=== PATIENT | female | born 1980 | race Native Hawaiian/Other Pacific Islander ===

== ENCOUNTER 2020-01-19 11:43 | Outpatient (REF) | payer MEDICAID, SELFPAY ==
--- NOTE | 2020-01-19 12:03 | XR_ITS ---
EXAMINATION: XR CHEST 2 VIEWS CLINICAL INFORMATION: Acute asthma exacerbation. COMPARISON: Prior chest radiographs, most recently 11/14/2016. TECHNIQUE: Frontal and lateral views of the chest were obtained. FINDINGS: The heart, great vessels, pulmonary vasculature and mediastinum are normal. The lungs show no focal infiltrate, effusion or pneumothorax. There is no acute osseous abnormality. XR/XR chest 2V IMPRESSION: No active cardiopulmonary disease.
[2020-01-19 13:12] LABS: D Dimer < 200 NG/ML
== END 2020-01-19 11:44 | disposition home or self-care (01) ==
LOC: HO.LAB 11:43
PROVIDERS: PCP Family Medicine; Visit Provider Emergency Medicine
DX: J45.41 Moderate persistent asthma with (acute) exacerbation (principal); R06.02 Shortness of breath
CPT/HCPCS: 36415; 71046; 85379

== ENCOUNTER 2020-09-15 13:41 | Outpatient (REF) | payer MEDICAID, SELFPAY ==
--- NOTE | ~2020-09-15 | XR_ITS ---
EXAMINATION: XR KNEE, RIGHT CLINICAL INFORMATION: Pain right knee. COMPARISON: None TECHNIQUE: Three views of the right knee. FINDINGS: The tricompartment joint space is maintained normal. No visible acute fracture, dislocation or subluxation seen. There are no loose bodies. XR/XR knee RT 4V IMPRESSION: Unremarkable right knee exam.
== END 2020-09-15 13:42 | disposition home or self-care (01) ==
LOC: HO.XRAY 13:41
PROVIDERS: Absent Provider Family Medicine; PCP Family Medicine; Visit Provider Internal Medicine
DX: M25.561 Pain in right knee (principal)
CPT/HCPCS: 73564

== ENCOUNTER 2021-04-24 12:03 | Outpatient (REF) | payer MEDICAID, SELFPAY ==
--- NOTE | ~2021-04-24 | MM_ITS ---
EXAMINATION: MM SCREENING DIGITAL BREAST TOMOSYNTHESIS, BILATERAL CLINICAL INFORMATION: Screening. Asymptomatic. Age 41. No prior breast imaging. No known family history breast cancer. The lifetime risk of breast cancer based on the Tyrer-Cuzick Model is 8%. COMPARISON: None (current study represents initial baseline exam). TECHNIQUE: Digital breast tomosynthesis is performed in both the craniocaudal and mediolateral oblique views along with computer-aided detection (CAD). Synthesized 2D images are generated from the tomosynthesis. FINDINGS: The breasts are almost entirely fatty (ACR BI-RADS breast composition Category a). There are no significant masses, abnormal calcifications, or other abnormalities. Background stromal markings are normal. The skin contours are smooth. MM/MM tomosynthesis screening BI IMPRESSION: No mammographic evidence of malignancy. ASSESSMENT: BI-RADS 1: Negative RECOMMENDATION: Routine annual mammography screening. This patient's information was entered into a reminder system with a target due date for their next mammogram.
== END 2021-04-24 12:04 | disposition home or self-care (01) ==
LOC: HO.MAMMO 12:03
PROVIDERS: PCP Family Medicine; Visit Provider Family Medicine
DX: Z12.31 Encounter for screening mammogram for malignant neoplasm of breast (principal)
CPT/HCPCS: 77063; 77067

== ENCOUNTER 2021-06-22 17:12 | Emergency (ER) | payer MEDICAID, SELFPAY ==
--- NOTE | ~2021-06-22 | CT_ITS ---
EXAMINATION: CT ABDOMEN AND PELVIS WITHOUT CONTRAST CLINICAL INFORMATION: Left lower quadrant pain COMPARISON: 02/07/2014 TECHNIQUE: Multidetector volumetric imaging was performed from the superior aspect of the liver through the pubic symphysis. Sagittal and coronal reformatted images were obtained on the technologist's workstation. This CT examination was performed using dose optimization techniques as appropriate, variously including the following: *Automated exposure control *Adjustment of mA and/or kV according to patient size (this includes techniques or standardized protocols for targeted exams where dose is matched to indication/reason for exam; i.e. extremities or head) *Use of iterative reconstruction technique DLP: 914 mGy-cm FINDINGS: LUNG BASES: Minimal bibasilar atelectasis. The visualized cardiac structures are unremarkable. LIVER, GALLBLADDER, AND BILIARY TREE: The liver is normal in size, shape, and attenuation. No focal hepatic lesion or biliary ductal dilatation is present. Numerous stones are seen layering in the gallbladder lumen. No inflammation of the gallbladder. PANCREAS: Unremarkable. SPLEEN: Unremarkable. ADRENAL GLANDS: Unremarkable. KIDNEYS AND URETERS: The kidneys are normal in size, shape, and attenuation. No hydronephrosis, hydroureter, or calculi seen. No perinephric stranding. BLADDER: Decompressed with no gross abnormality. GASTROINTESTINAL TRACT: The stomach is unremarkable. Normal caliber small bowel. No obstruction. Normal appendix. No colonic wall thickening or inflammatory change. No significant diverticulosis. No free air or free fluid. ABDOMINAL WALL: No significant hernia is appreciated. LYMPH NODES: Normal. VASCULAR: Unremarkable. PELVIC VISCERA: The uterus and adnexa are unremarkable. OSSEOUS STRUCTURES: No acute or suspicious osseous abnormality. CT/CT abdomen pelvis wo con IMPRESSION: No acute findings in the abdomen or pelvis. No inflammatory changes. Numerous stones are seen in the gallbladder lumen with no inflammation of the gallbladder. Fleischner guidelines were followed.
[2021-06-22 17:28] VITALS: BP 148/86; PULSE 90; RESP 18; TEMP 36.6; O2SAT 98; BMI 42.4
[2021-06-22 19:31] LABS: Appearance Urine CLEAR; Color Urine YELLOW; Glucose Urine UA NEG (NEG); Leukocyte Esterase Urine NEG (NEG); Nitrite Urine NEG (NEG); PH 5.5 (5.0-8.0); Specific Gravity - Urine >= 1.030 (1.005-1.025); Urine Blood NEG (NEG); Urine Ketones 5 MG/DL (NEG); Urine Protein TRACE MG/DL (NEG-TRACE)
[2021-06-22 19:32] LABS: UPreg QC Valid YES; Urine Pregnancy NEGATIVE (NEGATIVE)
[2021-06-22 19:35] LABS: Alanine Aminotransferase 23 U/L (0-31); Albumin Level 3.6 g/dL (3.5-5.0); Alkaline Phosphatase 45 U/L (39-117); Anion Gap 10 (12-20); Aspartate Amino Transferase 17 U/L (5-31); Bilirubin Direct 0.2 mg/dL (0.0-0.5); Bilirubin Total 0.4 mg/dL (0.0-1.0); Blood Urea Nitrogen 12 mg/dL (9-16); Calcium 9.2 mg/dL (8.4-10.2); Carbon Dioxide 26 mmol/L (22-29); Chloride 106 mmol/L (96-108); Creatinine Clr Calc Pharmacy 143.1; Estimated Glomerular Filt Rate > 60; Glucose Random 153 mg/dL (60-115); Lipase 33 U/L (8-78); Potassium 3.8 mmol/L (3.3-5.1); Sodium 138 mmol/L (135-145); Total Protein 6.8 g/dL (6.5-8.0)
--- NOTE | 2021-06-22 22:25 | PC.NURSE ---
Pt was requesting more pain medications from Tomy MARTINEZ, but pt was given tramadol and toradol at a clinic, Tomy MARTINEZ told her he could not give her more pain medications until a doctor examines her.
[2021-06-23 00:33] VITALS: BP 125/73; PULSE 81; RESP 20; O2SAT 100
--- NOTE | 2021-06-23 01:44 | ED.ABDPAIN ---
HPI - Abdominal Pain General Chief Complaint: Abdominal Pain Stated Complaint: abd pain/back pain/nausea Time Seen by Provider: 06/23/21 00:02 Source: patient Mode of arrival: ambulatory History of Present Illness HPI narrative: 41-year-old female with history of diabetes and asthma presents with abdominal pain for 2 days with associated nausea and chills but denies any urinary symptoms and states she has had a few episodes of diarrhea. Otherwise patient states that she still passes flatus and denies any new cough. Patient has no previous history of renal colic and describes the pain as sharp in the left lower quadrant. Related Data Previous Rx's Medication Instructions Recorded ondansetron 4 mg disintegrating 4 mg PO Q6H PRN #10 tab 06/23/21 tablet Allergies Allergy/AdvReac Type Severity Reaction Status Date / Time acetaminophen [From PERCOCET] Allergy Unknown ITCHY Unverified 10/28/19 17:31 oxycodone [From PERCOCET] Allergy Unknown ITCHY Unverified 10/28/19 17:31 Review of Systems Review of Systems Pertinent positives and negatives as stated in HPI 10 point review of systems is otherwise negative. PMFSH Past Medical History Source: nursing notes reviewed Social History Social History Advance Directives: No Advance Directives Information Provided: No Physical Exam ED Vital Signs: Vital Signs - 24 hr 06/22/21 17:28 06/23/21 00:33 06/23/21 02:40 Temperature 98 F Pulse Rate 90 81 83 Respiratory Rate 18 20 16 Blood Pressure 148/86 H 125/73 127/78 Pulse Oximetry 98 100 98 06/23/21 04:07 Temperature Pulse Rate 84 Respiratory Rate 18 Blood Pressure 127/83 Pulse Oximetry 96 BMI result Body Mass Index 42.4 VITAL SIGNS: Reviewed. GENERAL: Elevated BMI, well nourished, in mild distress. HEAD: Normocephalic/atraumatic EYES: PERRLA, EOMI EARS: Ext canals without abnormality OROPHARYNX: no oral lesions noted, posterior pharynx clear LUNGS: Normal breath sounds. No adventitious sounds or accessory muscle use. SpO2<98> CARDIOVASCULAR: Regular rate and rhythm without noted murmurs ABDOMEN: Soft, tenderness noted an left lower quadrant/left side of the abdomen, non-distended with bowel sounds. NEUROLOGIC: Alert and oriented x 4. Strength and sensation to light touch were grossly intact x 4. Course Course Course Narrative: 41-year-old female with history and clinical presentation suggestive of possible renal colic, diverticulitis lower clinical suspicion for pancreatitis or cholecystitis. Review of all investigations without acute findings to better explain patient's symptoms other than the possibility of intermittent biliary colic. No evidence to suggest pancreatitis or colitis. Patient responded well to pain medication was noted to be resting comfortably prior to discussion of all results. She is discharged home in stable condition with a referral to follow-up with surgery should she decide to have her gallbladder removed which it was noted that she had cholelithiasis. MDM - Abdominal Pain Lab Data Result diagrams: 06/23/21 02:40 06/22/21 19:06 Labs: Lab Results 06/22/21 06/22/21 06/22/21 Range/Units 19:06 19:06 19:06 WBC (4.8-10.8) X10*3/uL RBC (4.20-5.50) X10*6/uL Hgb (12.0-16.0) g/dl Hct (37.0-47.0) % MCV (80.0-98.0) fL MCH (27.0-33.0) pg MCHC (31.0-35.0) g/dl RDW (11.0-16.0) % Plt Count (160-400) X10*3/uL MPV (9.4-12.3) fL Immature Gran % (Auto) (0.0-0.4) % Neut % (Auto) (45-73) % Lymph % (Auto) (20-40) % [place] % (Auto) (2-11) % Eos % (Auto) (0-4) % Baso % (Auto) (0-2) % Lymph # (Auto) (1.2-4.9) X10*3/uL [place] # (Auto) (0.1-1.2) X10*3/uL Eos # (Auto) (0.0-0.4) X10*3/uL Baso # (Auto) (0.0-0.2) X10*3/uL Abs Immat Gran (auto) (0.00-0.03) X10*3/uL Absolute Neuts (auto) (2.0-8.3) x10*3/uL Absolute Nucleated RBC (0.0-0.012) X10*3/uL Nucleated RBC % (auto) (0.0-0.2) /100WBC Sodium 138 (135-145) mmol/L Potassium 3.8 (3.3-5.1) mmol/L Chloride 106 (96-108) mmol/L Carbon Dioxide 26 (22-29) mmol/L Anion Gap 10 L (12-20) BUN 12 (9-16) mg/dL Creatinine 0.64 (0.5-1.4) mg/dL Estim Creat Clear Calc 143.1 Estimated GFR > 60 Random Glucose 153 H (60-115) mg/dL Calcium 9.2 (8.4-10.2) mg/dL Total Bilirubin 0.4 (0.0-1.0) mg/dL Direct Bilirubin 0.2 (0.0-0.5) mg/dL AST 17 (5-31) U/L ALT 23 (0-31) U/L Alkaline Phosphatase 45 (39-117) U/L Total Protein 6.8 (6.5-8.0) g/dL Albumin 3.6 (3.5-5.0) g/dL Lipase 33 (8-78) U/L Urine Color YELLOW Urine Appearance CLEAR Urine pH 5.5 (5.0-8.0) Ur Specific [place] >= 1.030 H (1.005-1.025) Urine Protein TRACE (NEG-TRACE) MG/DL Urine Glucose (UA) NEG (NEG) MG/DL Urine Ketones 5 (NEG) MG/DL Urine Blood NEG (NEG) Urine Nitrite NEG (NEG) Ur Leukocyte Esterase NEG (NEG) Urine Test NEGATIVE (NEGATIVE) 06/23/21 Range/Units 02:40 WBC 7.5 (4.8-10.8) X10*3/uL RBC 4.56 (4.20-5.50) X10*6/uL Hgb 12.4 (12.0-16.0) g/dl Hct 37.8 (37.0-47.0) % MCV 82.9 (80.0-98.0) fL MCH 27.2 (27.0-33.0) pg MCHC 32.8 (31.0-35.0) g/dl RDW 12.7 (11.0-16.0) % Plt Count 224 (160-400) X10*3/uL MPV 10.4 (9.4-12.3) fL Immature Gran % (Auto) 0.1 (0.0-0.4) % Neut % (Auto) 71.2 (45-73) % Lymph % (Auto) 20.6 (20-40) % [place] % (Auto) 6.0 (2-11) % Eos % (Auto) 1.7 (0-4) % Baso % (Auto) 0.4 (0-2) % Lymph # (Auto) 1.6 (1.2-4.9) X10*3/uL [place] # (Auto) 0.5 (0.1-1.2) X10*3/uL Eos # (Auto) 0.1 (0.0-0.4) X10*3/uL Baso # (Auto) 0.0 (0.0-0.2) X10*3/uL Abs Immat Gran (auto) 0.01 (0.00-0.03) X10*3/uL Absolute Neuts (auto) 5.4 (2.0-8.3) x10*3/uL Absolute Nucleated RBC 0.000 (0.0-0.012) X10*3/uL Nucleated RBC % (auto) 0.0 (0.0-0.2) /100WBC Sodium (135-145) mmol/L Potassium (3.3-5.1) mmol/L Chloride (96-108) mmol/L Carbon Dioxide (22-29) mmol/L Anion Gap (12-20) BUN (9-16) mg/dL Creatinine (0.5-1.4) mg/dL Estim Creat Clear Calc Estimated GFR Random Glucose (60-115) mg/dL Calcium (8.4-10.2) mg/dL Total Bilirubin (0.0-1.0) mg/dL Direct Bilirubin (0.0-0.5) mg/dL AST (5-31) U/L ALT (0-31) U/L Alkaline Phosphatase (39-117) U/L Total Protein (6.5-8.0) g/dL Albumin (3.5-5.0) g/dL Lipase (8-78) U/L Urine Color Urine Appearance Urine pH (5.0-8.0) Ur Specific [place] (1.005-1.025) Urine Protein (NEG-TRACE) MG/DL Urine Glucose (UA) (NEG) MG/DL Urine Ketones (NEG) MG/DL Urine Blood (NEG) Urine Nitrite (NEG) Ur Leukocyte Esterase (NEG) Urine Test (NEGATIVE) Discharge Plan Discharge Clinical Impression: Abdominal pain, Cholelithiasis Patient Disposition: Home, Self-Care Instructions: Gallstones (ED), Abdominal Pain (ED) Additional Instructions: 1. Tylenol 1000 mg, por v?a oral, cada 6 horas seg?n sea necesario para controlar el dolor. No exceda los 4000 mg dentro de las 24 horas. 2. Ibuprofeno 400 mg, por v?a oral con leche o alimentos, cada 6 horas seg?n sea necesario para controlar el dolor. 3. Se le mai proporcionado kari remisi?n para haider kari cirug?a para discutir el tratamiento definitivo para ney c?lculos en la ves?cula biliar. 4. Sudha un seguimiento con encarnacion proveedor de atenci?n primaria el lunes por la ma?keren para kari reevaluaci?n. Regrese a la adolph de emergencias si los s?ntomas empeoran. Prescriptions: New ondansetron 4 mg tablet,disintegrating 4 mg PO Q6H PRN (Reason: nausea and vomiting) Qty: 10 0RF Referrals: Tamica Duran MD [Primary Care Provider] - Jaydon Mohan MD [Physician] - (Cholelithiasis and intermittent abdominal discomfort.) Print Language: Bangladeshi
[2021-06-23] MEDS: Ketorolac Tromethamine 15 MG/ML VIAL IM (01:54)
[2021-06-23 02:40] VITALS: BP 127/78; PULSE 83; RESP 16; O2SAT 98
[2021-06-23 02:44] LABS: Basophils Percent Auto 0.4 % (0-2); Eosinophils Absolute Auto 0.1 X10*3/uL (0.0-0.4); Eosinophils Percent Auto 1.7 % (0-4); Hematocrit 37.8 % (37.0-47.0); Hemoglobin 12.4 g/dl (12.0-16.0); Imm Gran Abs Auto 0.01 X10*3/uL (0.00-0.03); Imm Gran Pct Auto 0.1 % (0.0-0.4); Lymphocytes Absolute Auto 1.6 X10*3/uL (1.2-4.9); Lymphocytes Percent Auto 20.6 % (20-40); Mean Corpuscular HGB Conc 32.8 g/dl (31.0-35.0); Mean Corpuscular Hemoglobin 27.2 pg (27.0-33.0); Mean Corpuscular Volume 82.9 fL (80.0-98.0); Mean Platelet Volume 10.4 fL (9.4-12.3); Monocytes Absolute Auto 0.5 X10*3/uL (0.1-1.2); Neutrophils Absolute Auto 5.4 x10*3/uL (2.0-8.3); Neutrophils Percent Auto 71.2 % (45-73); Platelet Count 224 X10*3/uL (160-400); Red Blood Count 4.56 X10*6/uL (4.20-5.50); Red Cell Distribution Width 12.7 % (11.0-16.0); White Blood Count 7.5 X10*3/uL (4.8-10.8)
[2021-06-23 02:45] LABS: MANUAL DIFF FLAG NO
[2021-06-23] MEDS: 0.9 % Sodium Chloride 1,000 ML 999 ML IV (02:50)
[2021-06-23] MEDS: ondansetron HCL 4 MG/2 ML VIAL IVPUSH (03:03)
[2021-06-23 04:07] VITALS: BP 127/83; PULSE 84; RESP 18; O2SAT 96
== END 2021-06-23 04:32 | disposition home or self-care (01) ==
PROVIDERS: Emergency Provider Student in an Organized Health Care Education/Training Program; PCP Family Medicine
DX: K80.20 Calculus of gallbladder without cholecystitis without obstruction (principal); E11.9 Type 2 diabetes mellitus without complications
CPT/HCPCS: 36415; 74176; 80048; 80076; 81003; 81025; 83690; 85025; 96361; 96372; 96374; 99283; 99284; J1885; J2405

== ENCOUNTER 2022-09-12 08:42 | Outpatient (REF) | payer MEDICAID, SELFPAY ==
[2022-09-12 10:10] LABS: Blood Urea Nitrogen 11 mg/dL (9-16); Estimated Glomerular Filt Rate > 60
== END 2022-09-12 08:43 | disposition home or self-care (01) ==
LOC: HO.LAB 08:42
PROVIDERS: PCP Family Medicine; Visit Provider Registered Nurse
DX: Z00.00 Encounter for general adult medical examination without abnormal findings (principal)
CPT/HCPCS: 36415; 82565; 84520

== ENCOUNTER 2022-09-30 14:56 | Outpatient (REF) | payer MEDICAID, SELFPAY ==
--- NOTE | ~2022-09-30 | MM_ITS ---
EXAMINATION: MM SCREENING DIGITAL BREAST TOMOSYNTHESIS, BILATERAL CLINICAL INFORMATION: Screening. Asymptomatic. COMPARISON: Mammography: This study is compared with prior exams dating back to 2021. TECHNIQUE: Digital breast tomosynthesis is performed in both the craniocaudal and mediolateral oblique views along with computer-aided detection (CAD). Synthesized 2D images are generated from the tomosynthesis. FINDINGS: The breasts are almost entirely fatty (ACR BI-RADS breast composition Category a). There are no significant masses, abnormal calcifications, or other abnormalities. MM/MM tomosynthesis screening BI IMPRESSION: No mammographic evidence of malignancy. ASSESSMENT: BI-RADS BI-RADS 1 - Negative RECOMMENDATION: Routine annual mammography screening. 1 year F/U This examination should not preclude the clinical evaluation of a suspicious palpable abnormality. This patient's information was entered into a reminder system with a target due date for their next mammogram.
== END 2022-09-30 14:57 | disposition home or self-care (01) ==
LOC: HO.MAMMO 14:56
PROVIDERS: PCP Family Medicine; Visit Provider Family Medicine
DX: Z12.31 Encounter for screening mammogram for malignant neoplasm of breast (principal)
CPT/HCPCS: 77063; 77067

== ENCOUNTER → 2022-09-30 15:15 | Outpatient (BNV) | payer MEDICAID, SELFPAY | PROVIDERS: PCP Family Medicine; Visit Provider Radiology Diagnostic Radiology | DX: Z12.31 Encounter for screening mammogram for malignant neoplasm of breast (principal) | CPT/HCPCS: 77063; 77067 ==

== ENCOUNTER 2022-12-05 22:03 | Emergency (ER) | payer MEDICAID, SELFPAY ==
[2022-12-05 22:06] VITALS: BP 145/76; PULSE 98; RESP 24; TEMP 36.5; O2SAT 99; BMI 42.2
--- NOTE | 2022-12-05 22:27 | ED_ITS ---
HPI - Anxiety General Chief Complaint: Anxiety Stated Complaint: panic attacks Time Seen by Provider: 12/05/22 22:21 Source: patient and family Mode of arrival: ambulatory Limitations: no limitations History of Present Illness HPI narrative: Patient is a 42-year-old female with history of paraganglioma, asthma, anxiety, T2DM presenting to the emergency department with complaint of anxiety and frequent panic attacks for the past 1-2 weeks. She reports history of the same in the past, approximately 5 years ago but states that her anxiety at that time was related to a specific situation. She denies any current stressors or other situations causing her anxiety at this time. Reports only recent medication change was switching to Januvia from metformin. States she has been on Ativan and Klonopin in the past but states she does not wish to use any benzodiazepines at this time due to concern for addiction. She is not currently prescribed any medications for anxiety or depression, does not have a therapist or psychiatrist at this time. Saw her PCP yesterday, had labs drawn, but states PCP did not prescribe anything for anxiety. She denies any suicidal or homicidal ideations, auditory or visual hallucinations. Significant other reports that he has had to funeral car driver her around in the car in order for her to be able to get any sleep. She denies any chest pain, shortness of breath, palpitations. complaint: anxiety Onset (ago): week(s) Severity: severe Quality: worsening Place: home History of similar episodes: Yes Provoking factors: none known Relieving factors: nothing Exacerbating factors: nothing Associated symptoms: denies other symptoms Related Data Previous Rx's Medication Instructions Recorded ondansetron 4 mg disintegrating 4 mg PO Q6H PRN nausea and 06/23/21 tablet vomiting #10 tabs hydroxyzine HCl 25 mg tablet 25 mg PO TID PRN anxiety #14 tabs 12/05/22 Allergies Allergy/AdvReac Type Severity Reaction Status Date / Time oxycodone [From PERCOCET] Allergy Unknown ITCHY Verified 12/05/22 22:06 Review of Systems Review of Systems: As per HPI. Yes all other systems are reviewed and are negative Constitutional: Constitutional: Reports as per HPI [facility] Social History Social History Smoked in Last 30 Days: No Use of substances other than those prescribed or required for medical reasons: No Advance Directives: No Advance Directives Information Provided: No Patient : No Physical Exam Vital Signs: Vital Signs: Last Vital Signs Temp 97.8 F 12/05/22 23:15 Pulse 96 12/05/22 23:15 Resp 16 12/05/22 23:15 BP 107/61 12/05/22 23:15 Pulse Ox 98 12/05/22 23:15 O2 Del Method Room Air 12/05/22 23:15 BMI result Body Mass Index 42.2 Vital signs have been reviewed and appear to be correct. Blood pressure mildly elevated. Heart rate normal. Respiratory rate slightly elevated. Temperature normal. Oxygen saturation normal. Const: General: cooperative, healthy appearing and no acute distress Orientation/consciousness: oriented to person, oriented to place, oriented to time and patient oriented x3 Limitations: no limitations HEENT: Head: Yes normocephalic and Yes atraumatic Ears: external ears normal General nose exam: Normal external nose present Face and sinus: Yes face symmetric Mouth: oropharynx normal and moist mucous membranes Throat: Yes uvula midline Eyes: Pupils: Equal, round and reactive pupils present Neck: Neck: Yes normal visual inspection and Yes supple Resp: Effort & Inspection: normal respiratory effort and able to speak in complete sentences Auscultation: clear to auscultation bilaterally Cardio: Rate: regular rate Rhythm: regular rhythm Heart sounds: S1 normal heart sound present and S2 normal heart sound present GI: Palpation (GI): Soft to palpation and nontender Auscultation: normoactive bowel sounds : General: Yes no CVA tenderness Back/Spine/Pelvis: Back: no CVA tenderness Skin: General skin exam: elasticity normal and turgor normal Neuro: General: oriented to person, oriented to place, oriented to time, patient oriented x3, moves all extremities, no focal motor deficits and CN's II- XI intact bilaterally Cranial nerves: Yes Equal, round and reactive pupils present Cognition (Neuro): normal cognition Extrem: General: Yes full ROM, Yes no pedal edema and Yes no calf tenderness Psych: Appearance: grossly normal Mental Status: mental status grossly normal Speech and movement: Pressured speech present Affect: Anxious affect present Attitude: cooperative Thought process: Normal thought process present Thought content: suicidality, no homicidality and no hallucinations Insight: Good insight present (Psych) 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 On exam patient is awake, A+Ox3, VS WNL, afebrile, normal neurological exam without focal deficits, physical exam findings as above. Given reported symptoms and physical exam findings, initial differential includes anxiety, panic disorder, depression. Will medicate patient with hydroxyzine as she is specifically requesting not to be medicated with benzodiazepines. Discussed with patient that it may be helpful to establish care with a therapist, patient states she is willing to do this, will provide resources. Given that patient was evaluated by PCP yesterday for same symptoms, do not feel additional labs are necessary at this time. Patient reports improved symptoms after receiving hydroxyzine and states was even able to fall sleep well in the ED. Will prescribe a short course for patient to use at home but advised patient she should attempt to establish care with a therapist. Instructed patient to follow-up with primary care provider and notify PCP that she was prescribed this medication. Return precautions discussed at bedside. Patient and significant other verbalized understanding of and agreement with plan. Differential Diagnosis Differential Diagnoses: The differential diagnosis associated with the presentation includes As per MDM. External Record Review External record reviewed: Inpatient record, Office record and Outpatient record Prescription Management I considered prescription management with: Other Chronic Conditions Patient?s care impacted by: Diabetes Discharge Plan Discharge Clinical Impression: Acute anxiety, Panic disorder Patient Disposition: Home, Self-Care Instructions: Panic Disorder (ED), Anxiety (ED) Additional Instructions: You were evaluated in the emergency department today for anxiety. Your symptoms improved with hydroxyzine. A prescription for this has been sent to your pharmacy. Please follow up with your primary care provider to notify them that this medication was prescribed to you. You were provided with resources to find a therapist in this area. Return to the emergency department if you have thoughts of hurting yourself, anyone else, chest pain, shortness of breath, or any other concerning symptoms. Prescriptions: New hydroxyzine HCl 25 mg tablet 25 mg PO TID PRN (Reason: anxiety) Qty: 14 0RF No Action ondansetron 4 mg tablet,disintegrating 4 mg PO Q6H PRN (Reason: nausea and vomiting) Qty: 10 0RF
--- OUTSIDE RECORDS SUMMARY | 2022-12-05 22:29 | XMS_ITS | Continuity of Care Document ---
Author Name Unknown Organization [facility] Address [address] [place] [address]- Care Team Providers Care On Air Director Name Role Phone Tamica Duran MD Primary Care Physician [place] [facility] [place] 07/17[place]21 - 08/16/21 [facility] [address] [place] [id number] Attending Physician: Admtr, Ar8 Admitting Physician: Admtr, Ar8 Referring Physician: Admtr, Ar8 Allergies, Adverse Reactions, Alerts No Known Allergies Medications Freestyle Lite Lancets See Instructions, # 100 each, Refills 11, Tot. Refills 11, Maintenance, Use to check blood sugar once daily in the morning. 01/03/20 13:08:00 EST, Supply Start Date: 01/03/20 Stop Date: 12/28/20 Status: Ordered Freestyle Lite Monitor See Instructions, # 1 each, Refills 5, Tot. Refills 5, Maintenance, Use to check blood sugar once daily in the morning. 01/03/20 13:08:00 EST, Supply Start Date: 01/03/20 Stop Date: 07/01/20 Status: Ordered Freestyle Lite Test Strips See Instructions, # 50 each, Refills 11, Tot. Refills 11, Maintenance, Use to check blood sugar once daily in the morning. 01/03/20 13:08:00 EST, Supply Start Date: 01/03/20 Stop Date: 12/28/20 Status: Ordered gabapentin 100 mg oral capsule 100 mg, 1, capsule, By Mouth, Daily at bedtime, Take 1 capsule daily at bedtime for neuropathic pain., # 30 capsule, Refills 5, Tot. Refills 5, Maintenance, 07/17/21 9:39:00 EDT, Route to Pharmacy Electronically, [facility]/pharmacy #[id number], Partial fill upon... Start Date: 07/17/21 Status: Ordered metFORMIN 750 mg oral tablet, extended release 1 tablet = 750 mg, By Mouth, Daily, Take 1 tablet daily in the morning with food. E11.65., # 30 tablet, 11 Refills, Maintenance, 07/17/21 9:29:00 EDT, ER Tablet, [facility]/pharmacy #[id number], Partial fill uponpatient request if the prescription is for a schedu... Start Date: 07/17/21 Status: Ordered Trulicity Pen 4.5 mg/0.5 mL subcutaneous solution = 0.5 mL, Subcutaneous Injection, Every week, Take 4.5mg once weekly. E11.65., # 2 mL, 5 Refills, Maintenance, 07/17/21 9:29:00 EDT, Solution, [facility]/pharmacy #[id number], Partial fill upon patient request ifthe prescription is for a schedule II opioid drug.,... Start Date: 07/17/21 Status: Ordered Problem List Condition Effective Dates Status Health Status Inform ant Severe obesity(Confirmed) Active Social History Social History Type Response Smoking Status Former smoker entered on: 04/07/14 Sex
--- OUTSIDE RECORDS SUMMARY | 2022-12-05 22:30 | XMS_ITS | Continuity of Care Document ---
Author Name Unknown Organization [facility] Address [address] [place] [address]- Care Team Providers Care Bag Shaker Name Role Phone Tamica Duran MD Primary Care Physician [place] [facility] [place] 04/[place]/20 [facility] [address] [place] [id number] Attending Physician: Admtr, Ar8 Admitting Physician: Admtr, Ar8 Referring Physician: Admtr, Ar8 Allergies, Adverse Reactions, Alerts Substance Reaction Severity Status NKA Active Medications Freestyle Lite Lancets See Instructions, # [...] Date: 01/03/20 Stop Date: 12/28/20 Status: Ordered glipiZIDE 5 mg oral tablet, extended release 1 tablet = 5 mg, By Mouth, Daily, Take 1 tablet daily in the morning. , # 30 tablet, 5 Refills, Maintenance, 01/03/20 13:09:00 EST, ER Tablet, [id number], Partial fill upon patient request Start Date: 01/03/20 Status: Ordered metFORMIN 500 mg oral tablet, extended release 2 tablet = 1,000 mg, By Mouth, 2 times a day, Take 2 tablets twice daily with food. E11.65, # 120 tablet, 5 Refills, Maintenance, 01/03/20 13:04:00 EST, ER Tablet, [facility]/pharmacy #[id number], Partial fill upon patient request Start Date: 01/03/20 Status: Ordered Trulicity Pen 1.5 mg/0.5 mL subcutaneous solution 0.5 mL = 1.5 mg, Subcutaneous Injection, Every week, Take 1.5mg once weekly. E11.65, # 2 mL, 5 Refills, Maintenance, 03/22/20 13:39:00 EST, Solution, [facility]/pharmacy #[id number], Dose increase Start Date: 03/22/20 Status: Ordered Social History Social History Type Response Smoking Status Former smoker entered on: 04/07/14 Sex
--- OUTSIDE RECORDS SUMMARY | 2022-12-05 22:30 | XMS_ITS | Continuity of Care Document ---
Author Name Unknown Organization [facility] Address [address] [place] [address]- Care Team Providers Care Molding Technician Name Role Phone Tamica Duran MD Primary Care Physician Encounter [facility] [place] Date(s): 12/03/21 - 01/02/22 [facility] [address] [place] [id number] Allergies, Adverse Reactions, Alerts No Known Allergies [...] 07/17/21 9:39:00 EDT, Route to Pharmacy Electronically, [facility]/pharmacy #[id number], Partial fill upon... Start Date: 07/17/21 Status: Ordered metFORMIN 750 mg oral tablet, extended release 1 tablet = 750 mg, By Mouth, Daily, Take 1 tablet daily in the morning with food. E11.65., # 30 tablet, 11 Refills, Maintenance, 07/17/21 9:29:00 EDT, ER Tablet, [id number], Partial fill uponpatient request if the prescription is for a schedu... Start Date: 07/17/21 Status: Ordered Trulicity Pen 3 mg/0.5 mL subcutaneous solution 0.5 mL = 3 mg, Subcutaneous Injection, Every week, please fill 3mg until 4.5mg back in stock, thanks rotate injection sites, # 2 mL, 3 Refills, Maintenance, 12/03/21 15:20:00 EDT, Solution, [id number], Partial fill upon patient request if the... Start Date: 12/03/21 Status: Ordered Trulicity Pen 4.5 mg/0.5 mL subcutaneous solution = 0.5 mL, Subcutaneous Injection, Every week, Take 4.5mg once weekly. E11.65., # 2 mL, 5 Refills, Maintenance, 07/17/21 9:29:00 EDT, Solution, [id number], Partial fill upon patient request ifthe prescription is for a schedule II opioid drug.,... Start Date: 07/17/21 Status: Ordered Problem List Condition Confirmation Course Effective Dates Status Health St [facility] Informant Severe obesity Confirmed Active Social History Social History Type Response Smoking Status Former smoker entered on: 04/07/14 Sex Patient Care team information Care Team Personnel Name: Tamica Duran MD Position: [facility] Outreach Member Role: PCP Address: Address: [address] [facility] [address] [place] [address]- Care Team Related Persons Name: JAKY MENESES Address: home [address] [place] [address]
--- OUTSIDE RECORDS SUMMARY | 2022-12-05 22:30 | XMS_ITS | Continuity of Care Document ---
Author Name Unknown Organization [facility] Address [address] [place] [address]- Care Team Providers Care Enterprise Analyst Name Role Phone Taimca Duran MD Primary Care Physician Encounter [facility] [place] Date(s): 03/01/22 - 03/31/22 [facility] [address] [place] [id number] Attending Physician: Admtr, Mani8 Admitting Physician: Admtr, Ar8 Referring Physician: Admtr, Ar8 Allergies, Adverse Reactions, Alerts No Known Allergies Medications Advair Diskus 250 mcg-50 mcg inhalation powder TAKE 1 PUFF BY MOUTH EVERY 12 HOURS IN THE MORNING AND IN THE EVENING Start Date: 03/01/22 Status: Ordered Freestyle Lite Lancets See Instructions, # 100 each, Refills 11, Tot. Refills 11, Maintenance, Use to check blood sugar once daily in the morning. , 01/03/20 13:08:00 EST, Supply Start Date: 01/03/20 Stop Date: 12/28/20 Status: Ordered Freestyle Lite Monitor See Instructions, # 1 each, Refills 5, Tot. Refills 5, Maintenance, Use to check blood sugar once daily in the morning. , 01/03/20 13:08:00 EST, Supply Start Date: 01/03/20 Stop Date: 07/01/20 Status: Ordered Freestyle Lite Test Strips See Instructions, # 50 each, Refills 11, Tot. Refills 11, Maintenance, Use to check blood sugar once daily in the morning. , 01/03/20 13:08:00 EST, Supply Start Date: 01/03/20 Stop Date: 12/28/20 Status: Ordered gabapentin 100 mg oral capsule 100 mg, 1, capsule, By Mouth, Daily at bedtime, Take 1 capsule daily at bedtime for neuropathic pain., # 30 capsule, Refills 5, Tot. Refills 5, Maintenance, 07/17/21 9:39:00 EDT, Route to Pharmacy Electronically, [facility]/pharmacy #[id number], Partial fill upon... Start Date: 07/17/21 Status: Ordered 1.530 oral tablet TAKE 1 TABLET BY MOUTH EVERY DAY Start Date: 03/01/22 Status: Ordered metFORMIN 750 mg oral tablet, extended release 1 tablet = 750 mg, By Mouth, Daily, Take 1 tablet daily in the morning with food. E11.65., # 30 tablet, 11 Refills, Maintenance, 07/17/21 9:29:00 EDT, ER Tablet, [facility]/pharmacy #[id number], Partial fill uponpatient request if the prescription is for a schedu... Start Date: 07/17/21 Status: Ordered selenium sulfide 2.25% topical shampoo APPLY AND LATHER IN HAIR 2 TIMES PER WEEK. LEAVE 5 MIN AND RINSE Start Date: 03/01/22 Status: Ordered Trulicity Pen 3 mg/0.5 mL subcutaneous solution 0.5 mL = 3 mg, Subcutaneous Injection, Every week, please fill 3mg until 4.5mg back in stock, thanks rotate injection sites, # 2 mL, 3 Refills, Maintenance, 02/13/22 12:59:00 EST, Solution, [facility]/pharmacy #[id number], Partial fill upon patient request if the... Start Date: 02/13/22 Status: Ordered Trulicity Pen 4.5 mg/0.5 mL subcutaneous solution = 0.5 mL, Subcutaneous Injection, Every week, Take 4.5mg once weekly. E11.65., # 2 mL, 5 Refills, Maintenance, 07/17/21 9:29:00 EDT, Solution, [facility]/pharmacy #[id number], Partial fill upon patient request ifthe prescription is for a schedule II opioid drug.,... Start Date: 07/17/21 Status: Ordered Ventolin HFA 108 mcg/inh inhalation aerosol with adapter TAKE 2 PUFFS BY MOUTH EVERY 4 TO 6 HOURS NEEDED Start Date: 03/01/22 Status: Ordered Problem List Condition Confirmation Course Effective Dates Status Health [facility] at[facility] Informant Severe obesity Confirmed Active Social History Social History Type Response Smoking Status Former smoker entered on: 04/07/14 Sex Note * Event Display: Non Lab Results Authored Date: Patient Care team information Care Team Personnel Name: Roger CHASE , Tamica Weeks Position: [facility] Outreach Member Role: PCP Address: Address: [address] [place] [address] [place] [id number]- Care Team Related Persons Name: JAKY MENESES Address: home [address] [place] [address]
--- OUTSIDE RECORDS SUMMARY | 2022-12-05 22:30 | XMS_ITS | Continuity of Care Document ---
Author Name Unknown Organization [facility] Address [address] [place] [address]- Care Team Providers Care Principal Java Developer Name Role Phone Tamica Duran MD Primary Care Physician Encounter [facility] [place] Date(s): 12/20/20 - 01/19/21 [facility] [address] [place] [id number] Attending Physician: Admtr, Ar8 Admitting Physician: [...] Date: 01/03/20 Stop Date: 12/28/20 Status: Ordered metFORMIN 750 mg oral tablet, extended release 1 tablet = 750 mg, By Mouth, Daily, Take 1 tablet daily with food. E11.., # 30 tablet, 5 Refills,Maintenance, 12/20/20 12:01:00 EST, ER Tablet, [id number], Partial fill upon patient request if the prescription is for a schedule II opioid drug. Start Date: 12/20/20 Status: Ordered Trulicity Pen 3 mg/0.5 mL subcutaneous solution 0.5 mL = 3 mg, Subcutaneous Injection, Every week, Take 3mg once weekly. E11.65., # 2 mL, 0 Refills, Maintenance, 12/20/20 12:00:00 EST, Solution, [facility]/pharmacy #[id number], Dose increase Start Date: 12/20/20 Status: Ordered Social History Social History Type Response Smoking Status Former smoker entered on: 04/07/14 Sex
--- OUTSIDE RECORDS SUMMARY | 2022-12-05 22:30 | XMS_ITS | Continuity of Care Document ---
Author Name Unknown Organization [facility] Address [address] [place] [id number]- Care Team Providers Care Street Commissioner Name Role Phone Tamica Duran MD Primary Care Physician Encounter [facility] [place] [id number] Date(s): 09/24/22 - 10/24/22 [facility] [address] [place] [id number] Attending Physician: Trenton Avila Admitting Physician: AdmtrTrenton Referring Physician: Admtr, Ar8 Allergies, Adverse Reactions, Alerts No Known Allergies Medications Advair Diskus 250 mcg-50 mcg inhalation powder TAKE 1 PUFF BY MOUTH EVERY 12 HOURS IN THE MORNING AND IN THE EVENING Start Date: 03/01/22 Status: Ordered Advair Diskus 250 mcg-50 mcg inhalation powder TAKE 1 PUFF BY MOUTH EVERY 12 HOURS IN THE MORNING AND IN THE EVENING Start Date: 09/24/22 Status: Ordered amoxicillin 500 mg oral capsule TAKE 1 CAPSULE BY MOUTH TWICE A DAY FOR 10 DAYS Start Date: 09/24/22 Status: Ordered diazepam 2 mg oral tablet TAKE 1 TABLET BY ORAL ROUTE APPROX [address] SCAN Start Date: 09/24/22 Status: Ordered fluconazole 150 mg oral tablet TAKE 1 TABLET (150 MG) BY MOUTH IN THE MORNING FOR 1 DOSE. Start Date: 09/24/22 Status: Ordered fluticasone 50 mcg/inh nasal spray PLEASE SEE ATTACHED FOR DETAILED DIRECTIONS Start Date: 09/24/22 Status: Ordered Freestyle InsuLinx Lancets See Instructions, # 100 each, Maintenance, use to check blood sugar 3 times per day e11.9, 09/24/2309:45:00 EDT, Supply, 163, cm, 09/24/22 10:10:00 EDT, Height Start Date: 09/24/22 Status: Ordered Freestyle Lite Lancets See Instructions, # 100 each, Refills 11, Tot. Refills 11, Maintenance, Use to check blood sugar once daily in the morning. , 01/03/20 13:08:00 EST, Supply Start Date: 01/03/20 Stop Date: 12/28/20 Status: Ordered Freestyle Lite Monitor See Instructions, # 1 each, Refills 5, Tot. Refills 5, Maintenance, use to check blood sugar 3 times per day e11.9, 09/24/22 10:42:00 EDT, Supply, 163, cm, 09/24/22 10:10:00 EDT, Height Start Date: 09/24/22 Stop Date: 03/23/23 Status: Ordered Freestyle Lite Monitor See Instructions, # 1 each, Refills 5, Tot. Refills 5, Maintenance, Use to check blood sugar once daily in the morning. 01/03/20 13:08:00 EST, Supply Start Date: 01/03/20 Stop Date: 07/01/20 Status: Ordered Freestyle Lite Test Strips See Instructions, # 200 each, Tot. Refills 5, Maintenance, use to check blood sugar 3 times e11.9, 09/24/22 10:42:00 EDT, Supply, 163, cm, 09/24/22 10:10:00 EDT, Height Start Date: 09/24/22 Stop Date: 10/24/22 Status: Ordered Freestyle Lite Test Strips See [...] 07/17/21 9:39:00 EDT, Route to Pharmacy Electronically, [facility]/pharmacy #[id number], Partial fill upon... Start Date: 07/17/21 Status: Ordered Januvia 50 mg oral tablet = 50 mg, By Mouth, Daily, take one tablet daily e11.9, # 30 tablet, 3 Refills, Maintenance, 09/24/22 10:40:00 EDT, Tablet, [facility], Partial fill upon patient request if the prescription is for a schedule II opioid drug., 163, cm,... Start Date: 09/24/22 Status: Ordered Jardiance 10 mg oral tablet 1 tablet = 10 mg, By Mouth, Daily in AM, Take one tablet per day in the morning e11.9, # 30 tablet,3 Refills, Maintenance, 09/24/22 10:39:00 EDT, Tablet, [facility], Partial fill upon patient request if the prescription is for a sc... Start Date: 09/24/22 Status: Ordered Junel Fe 1.5/30 oral tablet TAKE 1 TABLET BY MOUTH EVERY DAY Start Date: 03/01/22 Status: Ordered metFORMIN 500 mg oral tablet 1 tablet = 500 mg, By Mouth, 2 times a day, # 180 tablet, 3 Refills, Maintenance, 07/30/22 10:06:00EDT, Tablet, [facility]/pharmacy #[id number], Partial fill upon patient request if the prescription is for a schedule II opioid drug., 163, cm, 07/17/21 9:15:00 EDT... Start Date: 07/30/22 Status: Ordered metFORMIN 750 mg oral tablet, extended release 1 tablet = 750 mg, By Mouth, Daily, Take 1 tablet daily in the morning with food. E11.65., # 30 tablet, 11 Refills, Maintenance, 07/17/21 9:29:00 EDT, ER Tablet, [facility]/pharmacy #[id number], Partial fill uponpatient request if the prescription is for a schedu... Start Date: 07/17/21 Status: Ordered montelukast 10 mg oral tablet TAKE 1 TABLET BY MOUTH EVERY DAY IN THE EVENING Start Date: 09/24/22 Status: Ordered nitrofurantoin macrocrystals-monohydrate 100 mg oral capsule TAKE 1 CAPSULE BY MOUTH 2 TIMES DAILY FOR 5 DAYS. Start Date: 09/24/22 Status: Ordered selenium sulfide 2.25% topical shampoo APPLY AND LATHER IN HAIR 2 TIMES PER WEEK. LEAVE 5 MIN AND RINSE Start Date: 03/01/22 Status: Ordered Trulicity Pen 3 mg/0.5 mL subcutaneous solution INJECT 1 PEN SUBCUTANEOUSLY ONCE A WEEK Start Date: 09/24/22 Status: Ordered Trulicity Pen 4.5 mg/0.5 mL subcutaneous solution = 0.5 mL, Subcutaneous Injection, Every week, rotate injection sites e11.9, # 2 mL, 4 Refills, Maintenance, 09/24/22 10:39:00 EDT, Solution, [facility], Partial fill upon patient request if the prescription is for a schedule II opioi... Start Date: 09/24/22 Status: Ordered Ventolin HFA 108 mcg/inh inhalation aerosol with adapter TAKE 2 PUFFS BY MOUTH EVERY 4 TO 6 HOURS NEEDED Start Date: 03/01/22 Status: Ordered Ventolin HFA 108 mcg/inh inhalation aerosol with adapter INHALE 2 PUFFS BY MOUTH EVERY 4 TO 6 HOURS NEEDED Start Date: 09/24/22 Status: Ordered Problem List Condition Confirmation Course Effective Dates Status Health St atus Informant Severe obesity Confirmed Active Social History Social History Type Response Smoking Status Former smoker entered on: 04/07/14 Sex Laboratory * Event Display: Non Lab Results Authored Date: Patient Care team information Care Team Personnel Name: Roger CHASE , Tamica Weeks Position: [facility] Outreach Member Role: PCP Address: Address: [address] [place] [address] [address] [place] [address]- Care Team Related Persons Name: JAKY MENESES Address: home [address] [place] [address]
--- OUTSIDE RECORDS SUMMARY | 2022-12-05 22:30 | XMS_ITS | Continuity of Care Document ---
Author Name Unknown Organization [facility] Address [address] [place] [address]- Care Team Providers Care Branch Account Executive Name Role Phone Tamica Duran MD Primary Care Physician Encounter [facility] [place] Date(s): 04/10/22 - 05/10/22 [facility] [address] [place], [place] [address] Allergies, Adverse Reactions, Alerts No Known Allergies [...] 07/17/21 9:39:00 EDT, Route to Pharmacy Electronically, [facility]/pharmacy #[id number], Partial fill upon... Start Date: 07/17/21 Status: Ordered June Fe 1.07/09 oral tablet TAKE 1 TABLET BY MOUTH EVERY DAY Start Date: 03/01/22 Status: Ordered metFORMIN 750 mg oral tablet, extended release 1 tablet = 750 mg, By Mouth, Daily, Take 1 tablet daily in the morning with food. E11.65., # 30 tablet, 11 Refills, Maintenance, 07/17/21 9:29:00 EDT, ER Tablet, [facility]/pharmacy #[id number], Partial fill uponpatient request [...] 3 Refills, Maintenance, 02/13/22 12:59:00 EST, Solution, [facility]/pharmacy #[id number], Partial fill upon patient request if the... Start Date: 02/13/22 Status: Ordered Trulicity Pen 4.5 mg/0.5 mL subcutaneous solution = 0.5 mL, Subcutaneous Injection, Every week, Take 4.5mg once weekly. E11.65., # 2 mL, 5 Refills, Maintenance, 07/17/21 9:29:00 EDT, Solution, [facility]/pharmacy #[id number], Partial fill [...] Name: Roger CHASE , Tamica Weeks Position: [facility] Outreach Member Role: PCP Address: Address: [address] [place] [address] [address] [place] [address]- Care Team Related Persons Name: JAKY MENESES Address: home [address] [place] [address]
[2022-12-05] MEDS: hydrOXYzine HCL 50 MG TABLET PO (22:46)
--- NOTE | 2022-12-05 22:51 | PC.NURSE ---
Patient is alert and oriented x3, VSS. Patient complaints of anxiety, insomnia, generalized body aches, frequent panic attacks for the past 1 week. Patient denies current life stressors. She reports history of the same symptoms in the past. Patient denies SI/HI. Provider at bedside. Patient medicated per MAR. Call lebron within patient's reach, patient's at bedside.
[2022-12-05 23:15] VITALS: BP 107/61; PULSE 96; RESP 16; TEMP 36.6; O2SAT 98
--- NOTE | 2022-12-05 23:44 | PC.NURSE ---
Patient appears calm. Patient reports significant improvement in level of anxiety after taking Hydroxyzine.
== END 2022-12-05 23:47 | disposition home or self-care (01) ==
PROVIDERS: Emergency Provider Internal Medicine; PCP Family Medicine
DX: F41.1 Generalized anxiety disorder (principal); F43.0 Acute stress reaction; F41.0 Panic disorder [episodic paroxysmal anxiety]; Z79.899 Other long term (current) drug therapy
CPT/HCPCS: 99283; 99284

== ENCOUNTER 2022-12-12 18:16 | Outpatient (REF) | payer MEDICAID, SELFPAY ==
[2022-12-13 02:19] LABS: CT PCR NOT DETECTED (Not Detect.); NG PCR NOT DETECTED (Not Detect.)
[2022-12-13 09:21] LABS: BV Int Neg Control Negative (Negative); BV Int Pos Control Positive (Positive)
== END 2022-12-12 18:17 | disposition home or self-care (01) ==
LOC: HO.HHCLNP 18:16
PROVIDERS: Visit Provider Family Medicine
DX: B37.31 Acute candidiasis of vulva and vagina (principal)
CPT/HCPCS: 0353U; 87480; 87510; 87660

== ENCOUNTER 2022-12-25 15:16 | Outpatient (REF) | payer MEDICAID, SELFPAY ==
[2022-12-25 16:30] LABS: Anion Gap 11 (12-20); Blood Urea Nitrogen 10 mg/dL (9-16); Carbon Dioxide 30 mmol/L (22-29); Chloride 102 mmol/L (96-108); Estimated Glomerular Filt Rate > 60; Glucose Random 235 mg/dL (60-115); Potassium 3.8 mmol/L (3.3-5.1); Sodium 139 mmol/L (135-145)
[2022-12-25 16:46] LABS: TSH reflex Free T4 2.09 uIU/mL (0.32-4.0)
== END 2022-12-25 15:17 | disposition home or self-care (01) ==
LOC: HO.HHCL 15:16
PROVIDERS: Visit Provider Internal Medicine
DX: F41.9 Anxiety disorder, unspecified (principal)
CPT/HCPCS: 36415; 80048; 84443

== ENCOUNTER 2023-05-19 18:48 | Outpatient (REF) | payer MEDICAID, SELFPAY ==
[2023-05-21 19:33] LABS: C. trachomatis RNA TMA NOT DETECTED (NOT DETECTED); Candida glabrata RNA NOT DETECTED (NOT DETECTED); Candida species RNA DETECTED (NOT DETECTED); N. gonorrhoeae RNA TMA NOT DETECTED (NOT DETECTED); Trichomonas vaginalis RNA NOT DETECTED (NOT DETECTED)
== END 2023-05-19 18:49 | disposition home or self-care (01) ==
LOC: HO.HHCLNP 18:48
PROVIDERS: Visit Provider Internal Medicine
DX: N89.8 Other specified noninflammatory disorders of vagina (principal)
CPT/HCPCS: 36415; 81513; 87481; 87491; 87591; 87661

== ENCOUNTER 2023-06-04 07:31 | Outpatient (REF) | payer MEDICAID, SELFPAY ==
--- NOTE | ~2023-06-04 | XR_ITS ---
EXAMINATION: XR KNEE, RIGHT CLINICAL INFORMATION: Pain in right knee. COMPARISON: 09/15/2020. TECHNIQUE: Three views of the right knee. FINDINGS: Mild narrowing of the medial and patellofemoral compartments with tiny marginal osteophytes. Moderate joint effusion. Small rounded calcific density anterior to the superior aspect of the patella. XR/XR knee RT 3V IMPRESSION: Mild degenerative changes.
== END 2023-06-04 07:32 | disposition home or self-care (01) ==
LOC: HO.HOSX 07:31
PROVIDERS: Visit Provider Orthopaedic Surgery
DX: M25.561 Pain in right knee (principal)
CPT/HCPCS: 73562; 99202

== ENCOUNTER 2023-06-04 11:01 | Outpatient (AMB) | payer MEDICAID, SELFPAY ==
--- NOTE | 2023-06-03 15:10 | A.OFFVIS_ITS ---
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
--- NOTE | 2023-06-03 15:10 | MHC.OFFVIS ---
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
[2023-06-04 11:17] VITALS: BMI 42.0
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
== END 2023-06-04 11:44 | disposition home or self-care (01) ==
PROVIDERS: PCP Family Medicine; Referring Provider Family Medicine; Visit Provider Orthopaedic Surgery
DX: M25.561 Pain in right knee (principal)
CPT/HCPCS: 99202

== ENCOUNTER 2023-06-18 09:11 | Outpatient (AMB) | payer MEDICAID, SELFPAY ==
[2023-06-18 09:15] VITALS: BMI 42.0
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
== END 2023-06-18 09:42 | disposition home or self-care (01) ==
PROVIDERS: PCP Family Medicine; Referring Provider Family Medicine; Visit Provider Orthopaedic Surgery
DX: M25.561 Pain in right knee (principal)
CPT/HCPCS: 99213

== ENCOUNTER → 2023-06-18 09:11 | Outpatient (BNVA) | payer MEDICAID, SELFPAY | PROVIDERS: PCP Family Medicine; Visit Provider Orthopaedic Surgery | DX: M25.561 Pain in right knee (principal); S83.241A Other tear of medial meniscus, current injury, right knee, initial encounter; V89.0XXA Person injured in unspecified motor-vehicle accident, nontraffic, initial encounter; Y93.9 Activity, unspecified; Y92.410 Unspecified street and highway as the place of occurrence of the external cause; Y99.9 Unspecified external cause status | CPT/HCPCS: 99212 ==

== ENCOUNTER 2023-07-16 08:55 | Outpatient (REF) | payer MEDICAID, SELFPAY ==
[2023-07-16 11:48] LABS: MANUAL DIFF FLAG NO
[2023-07-16 11:58] LABS: Basophils Percent Auto 0.6 % (0-2); Eosinophils Absolute Auto 0.1 X10*3/uL (0.0-0.4); Eosinophils Percent Auto 1.9 % (0-4); Hemoglobin 13.2 g/dl (12.0-16.0); Imm Gran Abs Auto 0.01 X10*3/uL (0.00-0.03); Imm Gran Pct Auto 0.2 % (0.0-0.4); Lymphocytes Absolute Auto 1.3 X10*3/uL (1.2-4.9); Lymphocytes Percent Auto 24.7 % (20-40); Mean Corpuscular HGB Conc 31.4 g/dl (31.0-35.0); Mean Corpuscular Hemoglobin 25.7 pg (27.0-33.0); Mean Corpuscular Volume 81.9 fL (80.0-98.0); Mean Platelet Volume 11.5 fL (9.4-12.3); Monocytes Absolute Auto 0.4 X10*3/uL (0.1-1.2); Neutrophils Absolute Auto 3.4 x10*3/uL (2.0-8.3); Neutrophils Percent Auto 65.6 % (45-73); Platelet Count 222 X10*3/uL (160-400); Red Blood Count 5.13 X10*6/uL (4.20-5.50); Red Cell Distribution Width 14.9 % (11.0-16.0); White Blood Count 5.1 X10*3/uL (4.8-10.8)
[2023-07-16 12:03] LABS: Estimated Average Glucose 263 mg/dL; Hemoglobin A1c % 10.8 % (<6.0)
[2023-07-16 12:27] LABS: Alanine Aminotransferase 53 U/L (0-31); Albumin Level 3.7 g/dL (3.5-5.0); Alkaline Phosphatase 53 U/L (39-117); Anion Gap 14 (12-20); Aspartate Amino Transferase 35 U/L (5-31); Bilirubin Direct 0.2 mg/dL (0.0-0.5); Bilirubin Total 0.5 mg/dL (0.0-1.0); Blood Urea Nitrogen 10 mg/dL (9-16); Carbon Dioxide 24 mmol/L (22-29); Chloride 103 mmol/L (96-108); Cholesterol 180 mg/dL (<200); Estimated Glomerular Filt Rate > 60; Glucose Random 362 mg/dL (60-115); HDL Cholesterol 60 mg/dL (>40); LDL Cholesterol Calculated 110 mg/dL (<100); Potassium 4.1 mmol/L (3.3-5.1); Sodium 137 mmol/L (135-145); Total Protein 7.1 g/dL (6.5-8.0); Triglycerides 52 mg/dL (<150)
[2023-07-16 12:42] LABS: Creatinine Urine 60.49 mg/dL; Microalbum/Creatinine Ratio Ur 23.1 ug/mg cr (<30)
[2023-07-16 13:04] LABS: Syphilis Screen Nonreactive (Nonreactive)
[2023-07-17 10:39] LABS: DHEA Sulfate 92 mcg/dL (15-205)
[2023-07-20 17:18] LABS: Testosterone, Free 1.8 pg/mL (0.1-6.4); Testosterone, Total 18 ng/dL (2-45)
== END 2023-07-16 08:56 | disposition home or self-care (01) ==
LOC: HO.HHCL 08:55
PROVIDERS: Student in an Organized Health Care Education/Training Program; Visit Provider Family Medicine
DX: L65.9 Nonscarring hair loss, unspecified (principal); E11.9 Type 2 diabetes mellitus without complications
CPT/HCPCS: 36415; 80053; 80061; 82043; 82248; 82570; 82627; 83036; 84402; 84403; 84443; 85025; 86780

== ENCOUNTER 2023-08-11 20:24 | Emergency (ER) | payer OTHER, MEDICAID, SELFPAY ==
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
[2023-08-11 20:45] VITALS: BP 121/79; PULSE 94; RESP 20; TEMP 36.9; O2SAT 98; BMI 42.0
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
[2023-08-12 03:12] VITALS: BP 121/79; PULSE 94; RESP 20; TEMP 36.9; O2SAT 98
== END 2023-08-12 03:13 | disposition home or self-care (01) ==
PROVIDERS: Emergency Provider Emergency Medicine; PCP Family Medicine
DX: S13.4XXA Sprain of ligaments of cervical spine, initial encounter (principal); S09.90XA Unspecified injury of head, initial encounter; M54.2 Cervicalgia; R51.9 Headache, unspecified; V43.52XA Car driver injured in collision with other type car in traffic accident, initial encounter; Y93.9 Activity, unspecified; Y92.410 Unspecified street and highway as the place of occurrence of the external cause; Y99.8 Other external cause status; Z79.899 Other long term (current) drug therapy
CPT/HCPCS: 70450; 72125; 99282; 99284

== ENCOUNTER 2023-08-23 12:04 | Emergency (ER) | payer MEDICAID, SELFPAY ==
--- NOTE | 2023-08-23 | ECG_ITS ---
Test Reason : chest pain Blood Pressure : / mmHG Vent. Rate : 094 BPM Atrial Rate : 094 BPM P-R Int : 170 ms QRS Dur : 092 ms QT Int : 364 ms P-R-T Axes : -09 075 044 degrees QTc Int : 455 ms Normal sinus rhythm Normal ECG When compared to the previous EKG of No significant changes seen Referred By: Generic ED Physician Electronically Signed By:Axel Us
--- NOTE | ~2023-08-23 | XR_ITS ---
EXAMINATION: XR CHEST CLINICAL INFORMATION: Cough COMPARISON: 01/19/2020 TECHNIQUE: 2 views of the chest were obtained. FINDINGS: No significant abnormality is noted involving the heart, lungs, mediastinum, bony thorax or soft tissues. XR/XR chest 2V IMPRESSION: Unremarkable examination.
[2023-08-23 12:15] VITALS: BP 131/80; PULSE 88; RESP 18; TEMP 37; O2SAT 98; BMI 41.1
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
[2023-08-23 12:46] LABS: MANUAL DIFF FLAG NO
[2023-08-23 12:50] LABS: Basophils Percent Auto 0.5 % (0-2); Eosinophils Absolute Auto 0.1 X10*3/uL (0.0-0.4); Eosinophils Percent Auto 1.6 % (0-4); Hematocrit 38.5 % (37.0-47.0); Hemoglobin 12.7 g/dl (12.0-16.0); Imm Gran Abs Auto 0.01 X10*3/uL (0.00-0.03); Imm Gran Pct Auto 0.2 % (0.0-0.4); Lymphocytes Absolute Auto 1.6 X10*3/uL (1.2-4.9); Lymphocytes Percent Auto 25.2 % (20-40); Mean Corpuscular Hemoglobin 26.2 pg (27.0-33.0); Mean Corpuscular Volume 79.4 fL (80.0-98.0); Mean Platelet Volume 10.6 fL (9.4-12.3); Monocytes Absolute Auto 0.4 X10*3/uL (0.1-1.2); Monocytes Percent Auto 6.6 % (2-11); Neutrophils Absolute Auto 4.2 x10*3/uL (2.0-8.3); Neutrophils Percent Auto 65.9 % (45-73); Platelet Count 193 X10*3/uL (160-400); Red Blood Count 4.85 X10*6/uL (4.20-5.50); Red Cell Distribution Width 13.9 % (11.0-16.0); White Blood Count 6.4 X10*3/uL (4.8-10.8)
[2023-08-23 12:54] LABS: Prothrombin Time 12.4 SEC (11.1-13.3)
[2023-08-23 13:09] LABS: Alanine Aminotransferase 28 U/L (0-31); Albumin Level 3.7 g/dL (3.5-5.0); Alkaline Phosphatase 46 U/L (39-117); Anion Gap 11 (12-20); Aspartate Amino Transferase 32 U/L (5-31); Bilirubin Total 0.4 mg/dL (0.0-1.0); Blood Urea Nitrogen 11 mg/dL (9-16); Calcium 9.2 mg/dL (8.4-10.2); Carbon Dioxide 24 mmol/L (22-29); Chloride 103 mmol/L (96-108); Creatinine Clr Calc Pharmacy 129.7; Estimated Glomerular Filt Rate > 60; Glucose Random 313 mg/dL (60-115); Lipase 35 U/L (8-78); Potassium 3.9 mmol/L (3.3-5.1); Sodium 134 mmol/L (135-145); Total Protein 6.9 g/dL (6.5-8.0)
[2023-08-23 13:18] LABS: Troponin-I High Sensitivity < 2.7 ng/L (<3.5-17.0)
--- NOTE | 2023-08-23 15:59 | PC.NURSE ---
verified EKG taken and signed by MD Donahue, [id number]
[2023-08-23 16:26] VITALS: BP 112/70; PULSE 86; RESP 17; TEMP 36.4; O2SAT 98
[2023-08-23 17:05] VITALS: BP 112/70; PULSE 86; RESP 17; TEMP 36.4; O2SAT 98
== END 2023-08-23 17:06 | disposition home or self-care (01) ==
PROVIDERS: Nurse Practitioner Family; Emergency Provider Internal Medicine; PCP Family Medicine
DX: M94.0 Chondrocostal junction syndrome [Tietze] (principal); R06.02 Shortness of breath; E11.9 Type 2 diabetes mellitus without complications; E78.5 Hyperlipidemia, unspecified; J45.909 Unspecified asthma, uncomplicated; Z79.899 Other long term (current) drug therapy
CPT/HCPCS: 36415; 71046; 80053; 83690; 84484; 85025; 85379; 85610; 93005; 99283; 99284

== ENCOUNTER → 2023-08-23 12:04 | Outpatient (BNV) | payer MEDICAID, SELFPAY | PROVIDERS: Emergency Provider Internal Medicine; PCP Family Medicine; Visit Provider Internal Medicine Cardiovascular Disease | DX: R07.9 Chest pain, unspecified (principal) | CPT/HCPCS: 93010 ==

== ENCOUNTER 2023-11-13 14:12 | Outpatient (AMB) | payer MEDICAID, SELFPAY ==
--- NOTE | 2023-11-13 14:15 | MHC.OFFVIS ---
Intake Visit Reasons: OV- RT knee pain Intake Note: Cheyanne is a 43 year old female who presents with complaints of progressively worsening right knee pain. She describes her pain as sharp in nature. Her pain has gotten worse over the last year in spite of continued non operative treatments. She has tried Tylenol and anti-inflammatory medicines which gave her minimal relief. She has also done physical therapy exercises which aggravated her pain. Vocational Rehabilitation Counselor Required: Yes Vocational Rehabilitation Counselor Language: Applications Development Analyst Services: Vocational Rehabilitation Counselor Present Vocational Rehabilitation Counselor Name: Bernardo ([id number]) Allergies oxycodone [From PERCOCET] Allergy (Unknown, Verified 11/13/23 14:17) ITCHY Medication List - Last Reconciled 11/13/23 by Dre Cedeño MD albuterol sulfate 2.5 mg inhalation Q4H albuterol sulfate 90 mcg/actuation (Ventolin HFA) 2 puffs inhalation Q4-6H PRN diclofenac sodium 1% 2 grams topical BID PRN dulaglutide (Trulicity) 4.5 mg subcut QWEEK fluticasone propion-salmeterol 250-50 mcg/dose (Advair Diskus) 1 ea inhalation BID fluticasone propionate 50 mcg/actuation (Flonase Allergy Relief) 2 sprays intranasal DAILY PRN hydroxyzine HCl 25 mg PO TID PRN ibuprofen 800 mg PO TID PRN lorazepam (Ativan) 1 mg PO ONCE metformin 500 mg PO BID metformin ER 750 mg PO QPM montelukast (Singulair) 10 mg PO BEDTIME multivitamin 1 tab PO DAILY naproxen 500 mg PO BID ondansetron 4 mg PO Q6H PRN PFSH Medical History Tumor Disorder of hypoglossal nerve Depression Gallstones Morbid obesity Dyslipidemia Back pain Diabetes Anemia Asthma Sleep apnea Vitamin D deficiency Social History Patient Tobacco Use Status: Never used Tobacco Current occupational status: employed 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, 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 Physical Exam Const Other: Well-nourished well-developed very friendly female awake alert and oriented x3 in no acute distress Extrem Other: Bilateral lower extremity examination shows good capillary refill, no skin lesions noted, normal sensation light touch Right knee examination shows a minimal effusion, palpable crepitus with range of motion, pain with range of motion, no instability Office Procedures Joint Injection/Aspiration Joint Injection/Aspiration Primary Site: right knee Prep: site was prepped using aseptic technique Injected: 40 mg of, DepoMedrol and 1% plain lidocaine Procedure: The patient tolerated the procedure well Coding - Large joint Procedure code (CPT) selection complete Results Reviewed Results Reviewed: X-rays of the patient's right knee taken previously show joint space narrowing, no acute bony abnormalities Assessment & Plan Assessment & Plan (1) Arthritis of right knee: Code(s): M17.11 - Unilateral primary osteoarthritis, right knee Category: Medical Plan Ms. Eran Ann presents with right knee pain due to early degenerative joint disease as well as medial meniscus tearing. I had a lengthy discussion with the patient regarding the treatment options. The risks and benefits of a right knee cortisone injection were discussed at length with the patient. The patient wished to proceed. She tolerated the injection well. She will continue with her home exercise program. She will follow up with me on an as-needed basis should her symptoms not plateau at an unacceptable level over the next few months. Feel free to call me at any time should questions regarding her orthopedic management arise. I spent 22 minutes in reviewing the patient's records and imaging studies, seeing the patient and documenting in the medical record. Orders: Orders AMB Joint Injection/Aspiration Today M17.11 - Unilateral primary osteoarthritis, right knee Coding Level of Care Code Est Pt Level 3 (38194) Complex EM visit Add On G2211 Diagnoses Arthritis of right knee M17.11 CPT Codes Coding - Large joint: 97076 - Large joint ([id number])
== END 2023-11-13 14:42 | disposition home or self-care (01) ==
PROVIDERS: PCP Family Medicine; Visit Provider Orthopaedic Surgery
DX: M17.11 Unilateral primary osteoarthritis, right knee (principal)
CPT/HCPCS: 20610; 99213

== ENCOUNTER → 2023-11-13 14:12 | Outpatient (BNVA) | payer MEDICAID, SELFPAY | PROVIDERS: PCP Family Medicine; Visit Provider Orthopaedic Surgery | DX: M17.11 Unilateral primary osteoarthritis, right knee (principal) | CPT/HCPCS: 20610; 99212; J1010; J2003 ==

== ENCOUNTER 2023-11-25 09:06 | Outpatient (REF) | payer MEDICAID, SELFPAY ==
[2023-11-25 11:57] LABS: Alanine Aminotransferase 27 U/L (0-31); Albumin Level 3.8 g/dL (3.5-5.0); Alkaline Phosphatase 50 U/L (39-117); Aspartate Amino Transferase 21 U/L (5-31); Bilirubin Direct 0.2 mg/dL (0.0-0.5); Bilirubin Total 0.3 mg/dL (0.0-1.0); Blood Urea Nitrogen 18 mg/dL (9-16); Cholesterol 147 mg/dL (<200); Estimated Glomerular Filt Rate > 60; HDL Cholesterol 65 mg/dL (>40); Iron 40 mcg/dL (30-160); LDL Cholesterol Calculated 74 mg/dL (<100); Percent Iron Saturation 11 % (15-50); Total Iron Binding Capacity 362 mcg/dL (228-428); Total Protein 7.4 g/dL (6.5-8.0); Triglycerides 41 mg/dL (<150); Unsaturated Iron Binding 322 ug/dL
[2023-11-25 12:14] LABS: Ferritin 13 ng/mL (10-250); Vitamin D 25-OH Total 14.5 ng/mL (>30)
[2023-11-25 12:28] LABS: HBc Num1 0.14 S/CO (0.00-0.79); HBsAGNum1 0.41 S/CO (0.00-0.99); Hepatitis B Core Antibody Nonreactive (Nonreactive); Hepatitis B Surface Antigen Negative (Negative); ~HepC Num1 0.14 S/CO (0.00-0.79); ~Hepatitis A Antibody IgM Nonreactive (Nonreactive); ~Hepatitis B Surface Antibody REACTIVE (Nonreactive); ~Hepatitis C Antibody Nonreactive (Nonreactive)
[2023-11-26 12:14] LABS: Ceruloplasmin 29 mg/dL (14-48)
[2023-11-27 10:19] LABS: Alpha Fetoprotein 2.6 ng/mL
[2023-11-27 14:04] LABS: Anti Nuclear Antibody Screen NEGATIVE (NEGATIVE)
[2023-11-28 10:52] LABS: Mitochondrial Antibodies NEGATIVE (NEGATIVE)
[2023-11-28 22:22] LABS: Smooth Muscle Antibody <20 U (<20)
== END 2023-11-25 09:07 | disposition home or self-care (01) ==
LOC: HO.HHCL 09:06
PROVIDERS: Visit Provider Family Medicine
DX: R74.01 Elevation of levels of liver transaminase levels (principal); J45.20 Mild intermittent asthma, uncomplicated; E55.9 Vitamin D deficiency, unspecified; Z76.89 Persons encountering health services in other specified circumstances
CPT/HCPCS: 36415; 80061; 80076; 82105; 82306; 82390; 82565; 82728; 83540; 84520; 86015; 86038; 86381; 86704; 86706; 86709; 86803; 87340

== ENCOUNTER 2023-12-13 09:55 | Outpatient (REF) | payer MEDICAID, SELFPAY ==
--- NOTE | ~2023-12-13 | MM_ITS ---
EXAMINATION: MM SCREENING DIGITAL BREAST TOMOSYNTHESIS, BILATERAL CLINICAL INFORMATION: Screening. Asymptomatic. COMPARISON: Mammography: Comparison is made with available priors TECHNIQUE: Digital breast mammography with tomosynthesis is performed in both the craniocaudal and mediolateral oblique views along with computer-aided detection (CAD). FINDINGS: There are scattered areas of fibroglandular density (ACR BI-RADS breast composition Category b). There are no significant masses, abnormal calcifications, or other abnormalities. MM/MM tomosynthesis screening BI IMPRESSION: No mammographic evidence of malignancy. ASSESSMENT: BI-RADS BI-RADS 1 - Negative RECOMMENDATION: Routine annual mammography screening. 1 year F/U This examination should not preclude the clinical evaluation of a suspicious palpable abnormality. This patient's information was entered into a reminder system with a target due date for their next mammogram. Electronically signed by: Aliya Spence DO 12/23/2023 10:37 AM JUAN
== END 2023-12-13 09:56 | disposition home or self-care (01) ==
LOC: HO.MAMMO 09:55
PROVIDERS: PCP Family Medicine; Visit Provider Family Medicine
DX: Z12.31 Encounter for screening mammogram for malignant neoplasm of breast (principal)
CPT/HCPCS: 77063; 77067

== ENCOUNTER → 2023-12-13 10:15 | Outpatient (BNV) | payer MEDICAID, SELFPAY | PROVIDERS: PCP Family Medicine; Visit Provider Internal Medicine | DX: Z12.31 Encounter for screening mammogram for malignant neoplasm of breast (principal) | CPT/HCPCS: 77063; 77067 ==

== ENCOUNTER 2024-11-02 09:03 | Outpatient (REF) | payer MEDICAID, SELFPAY ==
--- OUTSIDE RECORDS SUMMARY | 2024-11-02 10:26 | XMS_ITS | Encounter Summary ---
Author Organization [employer] Address 75 [facility] 7t [place] [address] Care Team Providers Care Full Time Babysitter Name Role Phone Tamica Duran MD Primary Care Provider +1- [phone] Dre Cedeño MD Unavailable Reason for Visit * Reason Onset Date Comments Med Refill 11/05/2023 Encounter Details Date Type Department Care Team ([facility] st Contact Info) Description 11/05/2023 Refill [facility] [address] [place], [place] [phone] Tamica Duran MD [address] [place], [place] [phone] Pain Social History Tobacco Use Types Packs/Day Years Used Date Smoking Tobacco: Former Cigarettes Passive Smoke Exposure: Past Smokeless Tobacco: Never Alcohol Use Standard Drinks/Week Comments Yes 0 (1 standard drink = 0.6 oz pur e alcohol) occasional Depression Answer Date Recorded Patient Health Questionnaire-9 Score 7 12/25/2022 Patient Health Questionnaire-9 Score 7 12/25/2022 Last PHQ-9: Questionnaire Data Not on file 1 02/24/2022 Housing Stability Answer Date Recorded What is your housing situation today? I have renzo bruno 07/17/[address] you li ve. Do you have problems with any of the following? None of the above 07/17/2023 Food Insecurity Answer Date Recorded Within the past 12 months, y ou worried that your food would run out before you got money to buy more: Never True 07/17/2023 Within the past 12 months,th e food you bought just didn't last and you didn't have enough money to get more: Never True 07/2023 Transportation Answer Date Recorded In the past 12 months, has l ack of transportation kept you from medical appts, meetings, work or from getting things needed for daily living? No 07/17/2023 Utilities Answer Date Recorded In the past 12 months, has t he electric, gas, oil or water company threatened to shut off services in your home? No 07/17/2023 Depression Answer Date Recorded Patient Health Questionnaire-2 Score 0 12/25/2022 Comments Unknown Sex and Gender Information Value Date Recorded Sex Assigned at Female 12/10/2021 10:19 AM EDT Legal Sex Female 10:19 AM EDT Gender Identity Female 12/10/2021 10:19 AM EDT Sexual Orientation Straight 12/10/2021 10 :19 AM EDT documented as of this encounter Plan of Treatment Upcoming Encounters Date Type Department Care Team (Late st Contact Info) Description 11/05/2024 11:30 AM EDT Office Visit [facility] [address] [place], [place] [phone] Sreedhar, Cass, OD [address] [place] [address] documented as of this encounter Visit Diagnoses Diagnosis Pain Generalized pain documented in this encounter Additional Health Concerns Assessment Noted Time PHQ-9 Depression Total Score: 7 12/26/19 23 2:34 PM EST documented as of this encounter Care Teams Full Time Babysitter Relationship Specialty Start Date End Date Tamica Duran MD [address] [place] [address] PCP - General Family Medicine 02/10/18 Dre Cedeño MD [address] [place] [address] [place] [address] Orthopaedic Surgery 02/25/24 Dr. Vazquez [place] [facility]aryngology [facility] 04/14/24 Dr. Tamica Clinton MD [facility] Otolaryngology 04/14/24 documented as of this encounter
--- OUTSIDE RECORDS SUMMARY | 2024-11-02 10:26 | XMS_ITS | Encounter Summary ---
Author Organization [employer] Address [address] [facility] [address] [place] [address] Care Team Providers Care Engine Repairer Production Name Role Phone Tamica Duran MD Primary Care Provider +1- [phone] Dre Cedeño MD Unavailable Encounter Details Date Type Department Care Team (Late Contact Info) Description 01/28/2022 Abstract [facility] CHC MED & PEDS [address] [place], [place] [phone] Tamica Duran MD [address] [place], [place] [phone] Social History Tobacco Use Types Packs/Day Years Used Date Smoking Tobacco: Never Assessed Comments Unknown Sex and Gender Information Value Date Recorded Sex Assigned at Female 12/10/2021 10:19 AM EDT Legal Sex Female 10:19 AM EDT Gender Identity Female 12/10/2021 10:19 AM EDT Sexual Orientation Straight 12/10/2021 10 :19 AM EDT documented as of this encounter Plan of Treatment Upcoming Encounters Date Type Department Care Team (Late Contact Info) Description 11/05/2024 11:30 AM EDT Office Visit [facility] OPT[facility]ET[facility] [address] [place], [place] [phone] Sreedhar, Cass, OD [address] [place], [place] [phone] documented as of this encounter Procedures Procedure Name Priority Date/Time Associated Diagnosis Comments PAP/HPV Routine 12/02/2021 HPV HIGH RISK PCR Routine 11/02/2021 12: 00 AM EDT MAMMOGRAPHY Routine 04/24/2021 documented in this encounter Results * Pap Smear (12/02/2021) Pap smear NILM HPV negative Historical Provider HEALTH MAINTENANCE Final Result * HPV High Risk PCR (11/02/2021 12:00 AM EDT) Swab Cervical swab / Unknown Historical Provider LAB MICROBIOLOGY - GENERA L ORDERABLES Final Result [address], [place] [address] * Mammography (04/24/2021) Mammogram BI RADS 1 Anatomical Region Laterality Modality Other Historical Provider HEALTH MAINTENANCE Final Result documented in this encounter Visit Diagnoses Not on filedocumented in this encounter Care Teams Engine Repairer Production Relationship Specialty Start Date End Date Tamica Duran MD [address] [place] [address] PCP - General Family Medicine 02/10/18 Dre Cedeño MD [address] [place] [address] [address] [place] [address] Orthopaedic Surgery 02/25/24 Dr. Vazquez [place] Otolaryngology 02/25/24 [facility] Psych[facility] 04/14/24 Dr. Tamica Clinton MD [facility] Otolaryngology 04/14/24 documented as of this encounter
--- OUTSIDE RECORDS SUMMARY | 2024-11-02 10:26 | XMS_ITS | Encounter Summary ---
Author Organization [employer] Address 75 [facility] 7t [place] [address] Care Team Providers Care Room Designer Name Role Phone Tamica Duran MD Primary Care Provider +1- [phone] Dre Cedeño MD Unavailable Reason for Visit * Reason Onset Date Comments Med Refill 08/06/2023 Encounter Details Date Type Department Care Team ([facility] st Contact Info) Description 08/06/2023 Refill [facility] MEDICINE [address] [place], [place] [phone] Tamica Duran MD [address] [place], [place] [phone] Gastroesophageal reflux disease, unspecified whether esophagitis present; Mild intermittent asthma without complication Social History Tobacco Use Types Packs/Day Years [...] 11:30 AM EDT Office Visit [facility] OPTOMET[facility] [address] [place] [address] Sreedhar, Cass, OD [address] [place] [address] documented as of this encounter Visit Diagnoses Diagnosis Gastroesophageal reflux disease, unspecified whether esophagitis present Mild intermittent asthma without complication documented in this encounter Additional Health Concerns Assessment Noted Time PHQ-9 Depression Total Score: 7 12/26/19 23 2:34 PM EST documented as of this encounter Care Teams Room Designer Relationship Specialty Start Date End Date Tamica Duran MD [address] [place] [address] PCP - General Family Medicine 02/10/18 Dre Cedeño MD [address] [place] [address] [place] [address] Orthopaedic Surgery 02/25/24 Dr. Vazquez [place] Otolaryngology 02/25/24 [facility] Psychiatry 04/14/24 Dr. Tamica Clinton MD [facility] Otolaryngology 04/14/24 documented as of this encounter
--- OUTSIDE RECORDS SUMMARY | 2024-11-02 10:26 | XMS_ITS | Encounter Summary ---
Author Organization [employer] Address [address] [facility] 7t [place] [address] Care Team Providers Care Judicial Clerk Name Role Phone Tamica Duran MD Primary Care Provider +1- [phone] Dre Cedeño MD Unavailable Reason for Visit * Reason Onset Date Comments Med Refill 04/08/2023 Encounter Details Date Type Department Care Team ([facility] st Contact Info) Description 04/08/2023 Refill [facility] MEDICINE [address] [place], [place] [phone] Tamica Duran MD [address] [place], [place] [phone] Gastroesophageal reflux disease, unspecified whether esophagitis present (Primary Dx) Social History Tobacco Use Types Packs/Day Years [...] is your housing situation today? I have housing today, but I am worried about losing housing in the future 12/04/[address] you li ve. Do you have problems with any of the following? None of the above 12/04/2022 Food Insecurity Answer Date Recorded Within the past 12 months, y ou worried that your food would run out before you got money to buy more: Never True 12/04/2022 Within the past 12 months,th e food you bought just didn't last and you didn't have enough money to get more: Never True Transportation Answer Date Recorded In the past 12 months, has l ack of transportation kept you from medical appts, meetings, work or from getting things needed for daily living? No 12/04/2022 Utilities Answer Date Recorded In the past 12 months, has t he electric, gas, oil or water company threatened to shut off services in your home? No 12/04/2022 Depression Answer Date Recorded Patient Health Questionnaire-2 Score 0 12/25/2022 Comments Unknown Sex and Gender Information Value Date Recorded Sex Assigned at Female 12/10/2021 10:19 AM EDT Legal Sex Female 10:19 AM EDT Gender Identity Female 12/10/2021 10:19 AM EDT Sexual Orientation Straight 12/10/2021 10 :19 AM EDT documented as of this encounter Miscellaneous Notes * Telephone Encounter - Barb Butt LPN - 04/08/2023 10:07 AM EST Selenium Shampoo was sent on 03/18/23 with 1 refill. Last seen 01/29/23. * Telephone Encounter - Carli Olivera - 04/08/2023 10:02 AM EST TC from pt requesting medication refill. Medications needing refill : omeprazole (PriLOSEC) [address] capsule Selenium Sulfide 2.25 % shampoo [id number] [phone] [facility] documented in this encounter Plan of Treatment Upcoming Encounters Date Type Department Care Team (Late st Contact Info) Description 11/05/2024 11:30 AM EDT Office Visit [facility] OPTOMETRY [address] [place], [place] [phone] Cass Eli, OD [address] [place] [address] documented as of this encounter Visit Diagnoses Diagnosis Gastroesophageal reflux disease, unspecified whether esophagitis present- Primary documented in this encounter Additional Health Concerns Assessment Noted Time PHQ-9 Depression Total Score: 7 12/26/19 23 2:34 PM EST documented as of this encounter Care Teams Judicial Clerk Relationship Specialty Start Date End Date Tamica Duran MD [address] [place] [address] PCP - General Family Medicine 02/10/18 Dre Cedeño MD [address] [place] [address] Orthopaedic Surgery 02/25/24 Dr. Vazquez [place] Otolaryngology 02/25/24 [facility] Psych[facility] 04/14/24 Dr. Tamica Clinton MD [facility] Otolaryngology 04/14/24 documented as of this encounter
--- OUTSIDE RECORDS SUMMARY | 2024-11-02 10:26 | XMS_ITS | Encounter Summary ---
Author Organization [employer] Address [address] [facility] 7t [place] [address] Care Team Providers Care Detective Captain Name Role Phone Tamica Duran MD Primary Care Provider +1- [phone] Dre Cedeño MD Unavailable Reason for Visit * Reason Onset Date Comments Med Refill 11/05/2023 Encounter Details Date Type Department Care Team ([facility] st Contact Info) Description 11/05/2023 Refill [facility] [address] [place], [place] [phone] Keena Mcgee FNP [address] [place] [address] Social History Tobacco Use Types Packs/Day Years [...] Description 11/05/2024 11:30 AM EDT Office Visit [facility] OPTOMET[facility] [address] [place], [place] [phone] Sreedhar, Cass, OD [address] [place] [address] documented as of this encounter Visit Diagnoses Not on filedocumented in this encounter Additional Health Concerns Assessment Noted Time PHQ-9 Depression Total Score: 7 12/26/19 23 2:34 PM EST documented as of this encounter Care Teams Detective Captain Relationship Specialty Start Date End Date Tamica Duran MD [address] [place] [address] PCP - General Family Medicine 02/10/18 Dre Cedeño MD [address] [place] [address] Keila [address] [place] [address] Orthopaedic Surgery 02/25/24 Dr. Vazquez [place] Otolaryngology 02/[facility] 04/[facility]/24 Dr. Tamica Clinton MD [facility] Otolaryngology 04/14/24 documented as of this encounter
--- OUTSIDE RECORDS SUMMARY | 2024-11-02 10:26 | XMS_ITS | Encounter Summary ---
Author Organization [employer] Address [address] [facility] 7[address] [place] [address] Care Team Providers Care Staging Technician Name Role Phone Tamica Duran MD Primary Care Provider +1- [phone] Dre Cedeño MD Unavailable Reason for Visit * Reason Comments Med Refill Encounter Details Date Type Department Care Team (Late Contact Info) Description 05/22/2022 Refill [facility] MEDICINE [address] [place], [place] [phone] Tamica Duran MD [address] [place], [place] [phone] Social History Tobacco Use Types Packs/Day Years Used Date Smoking Tobacco: Never Smokeless Tobacco: Never Depression Answer Date Recorded Patient Health Questionnaire-2 Score 0 02/20/2022 Comments Unknown Sex and Gender Information Value Date Recorded Sex Assigned at Female 12/10/2021 10:19 AM EDT Legal Sex Female 10:19 AM EDT Gender Identity Female 12/10/2021 10:19 AM EDT Sexual Orientation Straight 12/10/2021 10 :19 AM EDT COVID-19 Exposure Response Date Recorded In the last 10 days, have yo u been in contact with someone who was confirmed or suspected to have Coronavirus/COVID-19? No / Unsure 05/17/2022 11:25 AM EDT documented as of this encounter Plan of Treatment Upcoming Encounters Date Type Department Care Team ([facility] Contact Info) Description 11/05/2024 11:30 AM EDT Office Visit [facility] OPTOMETRY [address] [place], [place] [phone] Cass Eli, OD [address] [place] [address] documented as of this encounter Visit Diagnoses Not on filedocumented in this encounter Care Teams Staging Technician Relationship Specialty Start Date End Date Tamica Duran MD [address] [place] [address] PCP - General Family Medicine 02/10/18 Dre Cedeño MD [address] [place] [address] [place] [address] Orthopaedic Surgery 02/25/24 Dr. Vazquez [place] Otolaryngology 02/25/24 [facility] Psych[facility] 04/14/24 Dr. Tamica Clinton MD [facility] Otolaryngology 04/14/24 documented as of this encounter
--- OUTSIDE RECORDS SUMMARY | 2024-11-02 10:26 | XMS_ITS | Encounter Summary ---
Author Organization [employer] Address [address] [facility] 7t [place] [address] Care Team Providers Care Loading Checker Name Role Phone Tamica Duran MD Primary Care Provider +1- [phone] Dre Cedeño MD Unavailable Reason for Visit * Reason Onset Date Comments Med Refill 06/19/2023 Encounter Details Date Type Department Care Team (Late st Contact Info) Description 06/19/2023 Refill [facility] CHC MED & PEDS [address] [place], [place] [phone] Tamica Duran MD [address] [place] [address] Type 2 diabetes mellitus with hyperglycemia, without long-term current use of insulin ([facility]) Social History Tobacco Use Types Packs/Day Years [...] Description 11/05/2024 11:30 AM EDT Office Visit [facility] OPTOMETRY [address] [place] [address] Sreedhar, Cass, OD [address] [place] [address] documented as of this encounter Visit Diagnoses Diagnosis Type 2 diabetes mellitus with hyperglycemia, without long-term current use of insulin ([facility]) documented in this encounter Additional Health Concerns Assessment Noted Time PHQ-9 Depression Total Score: 7 12/26/19 23 2:34 PM EST documented as of this encounter Care Teams Loading Checker Relationship Specialty Start Date End Date Tamica Duran MD [address] [place] [address] PCP - General Family Medicine 02/10/18 Dre Cedeño MD [address] [place] [address] [place] [address] Orthopaedic Surgery 02/25/24 Dr. Vazquez [place] Otolaryngology 02/25/24 [facility] Psychiatry 04/14/24 Dr. Tamica Clinton MD [facility] Otolaryngology 04/14/24 documented as of this encounter
--- OUTSIDE RECORDS SUMMARY | 2024-11-02 10:26 | XMS_ITS | Encounter Summary ---
Author Organization [employer] Address [address] [facility] 7t [place] [address] Care Team Providers Care Roll Threader Operator Name Role Phone Tamica Duran MD Primary Care Provider +1- [phone] Dre Cedeño MD Unavailable Reason for Visit * Reason Onset Date Comments Med Refill 06/15/2023 Encounter Details Date Type Department Care Team ([facility] st Contact Info) Description 06/15/2023 Refill [facility] MEDICINE [address] [place], [place] [phone] Tamica Duran MD [address] [place], [place] [phone] Gastroesophageal reflux disease, unspecified whether esophagitis present Social History Tobacco Use Types Packs/Day Years [...] Description 11/05/2024 11:30 AM EDT Office Visit [facility] OPTOMETRY [address] [place] [address] Cass Eli, OD [address] [place] [address] documented as of this encounter Visit Diagnoses Diagnosis Gastroesophageal reflux disease, unspecified whether esophagitis present documented in this encounter Additional Health Concerns Assessment Noted Time PHQ-9 Depression Total Score: 7 12/26/19 23 2:34 PM EST documented as of this encounter Care Teams Roll Threader Operator Relationship Specialty Start Date End Date Tamica Duran MD [address] [place] [address] PCP - General Family Medicine 02/10/18 Dre Cedeño MD [address] [place] [address] [place] [address] Orthopaedic Surgery 02/25/24 Dr. Vazquez [place] Otolaryngology 02/25/24 [facility] Psychiatry 04/14/24 Dr. Tamica Clinton MD [facility] Otolaryngology 04/14/24 documented as of this encounter
--- OUTSIDE RECORDS SUMMARY | 2024-11-02 10:26 | XMS_ITS | Encounter Summary ---
Author Organization [id number] Address [address] [facility] 7t [place] [address] Care Team Providers Care Construction Director Name Role Phone Tamica Duran MD Primary Care Provider +1- [phone] Dre Cedeño MD Unavailable Reason for Visit * Reason Onset Date Comments Referral 10/27/2024 Encounter Details Date Type Department Care Team ([facility] st Contact Info) Description 10/27/2024 Telephone [facility] [address] [place], [place] [phone] Tamica Duran MD [address] [place], [place] [phone] Referral Social History Tobacco Use Types Packs/Day Years Used Date Smoking Tobacco: Former Cigarettes Passive Smoke Exposure: Past Smokeless Tobacco: Never Alcohol Use Standard Drinks/Week Comments Yes 0 (1 standard drink = 0.6 oz pur e alcohol) occasional Depression Answer Date Recorded Patient Health Questionnaire-9 Score 0 04/14/2024 Patient Health Questionnaire-9 Score 0 04/14/2024 Last PHQ-9: Questionnaire Data Not on file 0 04/14/2024 Housing Stability Answer Date Recorded What is your housing situation today? I have renzo bruno 10/20/[address] you li ve. Do you have problems with any of the following? None of the above 10/20/2024 Food Insecurity Answer Date Recorded Within the past 12 months, y ou worried that your food would run out before you got money to buy more: Never True 10/20/2024 Within the past 12 months,th e food you bought just didn't last and you didn't have enough money to get more: Never True 11/2024 Transportation Answer Date Recorded In the past 12 months, has l ack of transportation kept you from medical appts, meetings, work or from getting things needed for daily living? No 10/20/2024 Utilities Answer Date Recorded In the past 12 months, has t he electric, gas, oil or water company threatened to shut off services in your home? No 10/20/2024 Depression Answer Date Recorded Patient Health Questionnaire-2 Score 0 04/14/2024 Internet Access Answer Date Recorded Internet Access Q1 No 10/20/2024 Internet Access Q2 I do not want or need it 10/11 Comments Unknown Sex and Gender Information Value Date Recorded Sex Assigned at Female 12/10/2021 10:19 AM EDT Legal Sex Female 10:19 AM EDT Gender Identity Female 12/10/2021 10:19 AM EDT Sexual Orientation Straight 12/10/2021 10 :19 AM EDT documented as of this encounter Miscellaneous Notes * Telephone Encounter - Itzel Wilkinson RN - 10/28/2024 12:03 PM EDT Telephone call placed to pt regarding below message. Informed that [employer] services are usually self initiated so she would call company and then they will do evaluation and send us paperwork. She stateswants T[employer] ST[employer]ER through [facility] and that she called them and they told her that she needs a referral. * Telephone Encounter - Nieves Zurita - 10/27/2024 11:43 AM EDT Tc from pt requesting an referral for a TIN STACKER Contact pt when referral is done at [phone] documented in this encounter Plan of Treatment Upcoming Encounters Date Type Department Care Team (Late st Contact Info) Description 11/05/2024 11:30 AM EDT Office Visit [facility] [address] [place] [address] Sreedhar, Cass, OD [address] [place] [address] documented as of this encounter Visit Diagnoses Not on filedocumented in this encounter Additional Health Concerns Assessment Noted Time PHQ-9 Depression Total Score: 0 04/15/19 25 10:04 AM EST documented as of this encounter Care Teams Construction Director Relationship Specialty Start Date End Date Tamica Duran MD [address] [place] [phone] PCP - General Family Medicine 02/10/18 Dre Cedeño MD [address] [place] [address] Orthopaedic Surgery 02/25/24 Dr. Vazquez [place] Otolaryngology 02/25/24 Vicki Wh[facility] Psychiatry 04/14/24 Dr. Tamica Clinton MD [facility] Otolaryngology 04/14/24 documented as of this encounter
--- OUTSIDE RECORDS SUMMARY | 2024-11-02 10:26 | XMS_ITS ---
Author Name [facility] Organization Unknown Encounters Encounter Type Encounter Reason Primary Diagnosis Location Date Ambulatory [facility] 05/14/2023
--- OUTSIDE RECORDS SUMMARY | 2024-11-02 10:26 | XMS_ITS | Encounter Summary ---
Author Organization [employer] Address [address] [facility] 7t [place] [address] Care Team Providers Care Offset Pressman Name Role Phone Tamica Duran MD Primary Care Provider +1- [phone] Dre Cedeño MD Unavailable Encounter Details Date Type Department Care Team (Late st Contact Info) Description 09/03/2023 Orders Only [facility] [address] [place], [place] [phone] Tamica Duran MD [address] [place], [place] [phone] Social History Tobacco Use Types Packs/Day Years [...] 11:30 AM EDT Office Visit [facility] [address] [place] [address] Sreedhar, Cass, OD [address] [place] [address] documented as of this encounter Visit Diagnoses Not on filedocumented in this encounter Additional Health Concerns Assessment Noted Time PHQ-9 Depression Total Score: 7 12/26/19 23 2:34 PM EST documented as of this encounter Care Teams Offset Pressman Relationship Specialty Start Date End Date Tamica Duran MD [address] [place] [address] PCP - General Family Medicine 02/10/18 Dre Cedeño MD [address] [place] [address] [address] [place] [address] Orthopaedic Surgery 02/25/24 Dr. Vazquez [facility] Otol[facility]ology 02/25/24 Vicki Cornejoa Psychiatry 04/14/24 Dr. Tamica Clinton MD [facility] Otolaryngology 04/14/24 documented as of this encounter
--- OUTSIDE RECORDS SUMMARY | 2024-11-02 10:26 | XMS_ITS | Encounter Summary ---
Author Organization [employer] Address [address] [facility] 7t [place] [address] Care Team Providers Care Peer Financial Counselor Name Role Phone Tamica Duran MD Primary Care Provider +1- [phone] Dre Cedeño MD Unavailable Encounter Details Date Type Department Care Team (Late st Contact Info) Description 11/18/2022 Abstract [facility] [address] [place], [place] [phone] Tamica Duran MD [address] [place], [place] [phone] Social History Tobacco Use Types Packs/Day Years Used Date Smoking Tobacco: Former Cigarettes Passive Smoke Exposure: Past Smokeless Tobacco: Never Housing Stability Answer Date Recorded What is your housing situation today? I have housing today, but I am worried about losing housing in the future 11/17/[address] you li ve. Do you have problems with any of the following? None of the above 11/17/2022 Food Insecurity Answer Date Recorded Within the past 12 months, y ou worried that your food would run out before you got money to buy more: Never True 11/17/2022 Within the past 12 months,th e food you bought just didn't last and you didn't have enough money to get more: Never True 09/2022 Transportation Answer Date Recorded In the past 12 months, has l ack of transportation kept you from medical appts, meetings, work or from getting things needed for daily living? No 11/17/2022 Utilities Answer Date Recorded In the past 12 months, has t he electric, gas, oil or water company threatened to shut off services in your home? No 11/17/2022 Depression Answer Date Recorded Patient Health Questionnaire-2 [...] Description 11/05/2024 11:30 AM EDT Office Visit [facility] [address] [place], [place] [phone] Sreedhar, Cass, OD [address] [place] [address] documented as of this encounter Visit Diagnoses Not on filedocumented in this encounter Care Teams Peer Financial Counselor Relationship Specialty Start Date End Date Tamica Duran MD [address] [place] [address] PCP - General Family Medicine 02/10/18 Dre Cedeño MD [address] [place] [address] Orthopaedic Surgery 02/25/24 Dr. Vazquez [place] Otolaryngology 02/25/24 Vicki Wharton Psychiatry 04/14/24 Dr. Tamica Clinton MD [facility] Otolaryngology 04/14/24 documented as of this encounter
--- OUTSIDE RECORDS SUMMARY | 2024-11-02 10:26 | XMS_ITS | Encounter Summary ---
Author Organization [employer] Address [address] [facility] 7t [place] [address] Care Team Providers Care Supervisor Tank Cleaning Name Role Phone Tamica Duran MD Primary Care Provider +1- [phone] Dre Cedeño MD Unavailable Reason for Visit * Reason Onset Date Comments Med Refill 06/19/2023 Encounter Details Date Type Department Care Team (Late st Contact Info) Description 06/19/2023 Refill [facility] [address] [place], [place] [phone] Tamica Duran MD [address] [place], [place] [phone] Mild intermittent asthma without complication; Gastroesophageal reflux disease, unspecified whether esophagitis present [...] Description 11/05/2024 11:30 AM EDT Office Visit [facility] [address] [place], [place] [phone] Sreedhar, Cass, OD [address] [place] [address] documented as of this encounter Visit Diagnoses Diagnosis Mild intermittent asthma without complication Gastroesophageal reflux disease, unspecified whether esophagitis present documented in this encounter Additional Health Concerns Assessment Noted Time PHQ-9 Depression Total Score: 7 12/26/19 23 2:34 PM EST documented as of this encounter Care Teams Supervisor Tank Cleaning Relationship Specialty Start Date End Date Tamica Duran MD [address] [place] [address] PCP - General Family Medicine 02/10/18 Dre Cedeño MD [address] [place] [address] [place] [address] Orthopaedic Surgery 02/25/24 Dr. Vazquez [place] Otolaryngology 02/25/24 [facility] Psychiatry 04/14/24 Dr. Tamica Clinton MD [facility] Otolaryngology 04/14/24 documented as of this encounter
--- OUTSIDE RECORDS SUMMARY | 2024-11-02 10:26 | XMS_ITS | Clinical Summary ---
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 cetirizine (ZyrTEC) 10 MG tabletIndication s:Seasonal allergies Take 1 tablet (10 mg) by mouth Once per day. 30 tablet 06/30/19 24 Active rosuvastatin (Crestor) 20 MG tabletIndication s:Type 2 diabetes mellitus without complication, without long-term current use of insulin ([facility]) Take 1 tablet (20 mg) by mouth Once per day. 30 tablet 07/17/19 24 Active albuterol (2.5 MG/3ML) 0.083% nebulizer solutionIndicati ons:Mild intermittent asthma without complication USE 1 VIAL VIA NEBULIZER EVERY 4 HOURS 225 mL 1 11/06/19 24 Active Ventolin HFA 108 (90 Base) MCG/ACT inhalerIndicatio ns:Mild intermittent asthma without complication INHALE 2 PUFFS BY MOUTH EVERY 4 TO 6 HOURS NEEDED 18 g 1 12/12/19 24 Active FreeStyle lancetsIndicatio ns:Type 2 diabetes mellitus without complication, without long-term current use of insulin ([facility]) 03/30/19 25 Active Continuous Glucose Sensor (FreeStyle Sivan 3 Sensor) miscIndications: Type 2 diabetes mellitus without complication, without long-term current use of insulin ([facility]) 03/30/19 25 Active Lantus SoloStar 100 UNIT/ML penIndications:T ype 2 diabetes mellitus without complication, without long-term current use of insulin ([facility]) 04/06/19 25 Active Ozempic, 2 MG/DOSE, 8 MG/3ML solution pen-injectorIndi cations:Type 2 diabetes mellitus without complication, without long-term current use of insulin ([facility]) INJECT 2 MG SUBCUTANEOUS EVERY WEEK, IN THE ABDOMEN, THIGH, OR UPPER ARM 03/19/19 25 Active metFORMIN XR (Glucophage-XR) 750 MG 24 hr tabletIndication s:Type 2 diabetes mellitus without complication, without long-term current use of insulin ([facility]) Take 750 mg by mouth with evening meal. Do not crush, chew, or split. Active cholecalciferol (Vitamin D-3) 25 MCG (1000 UT) tabletIndication s:Vitamin D Deficiency Take 1 tablet (25 mcg) by mouth Once per day. 90 tablet 3 04/15/19 25 026 Active Fluticasone-Salm eterol (Advair Diskus) 250-50 MCG/ACT aerosol powderIndication s:Mild intermittent asthma without complication Inhale 1 puff 2 times daily. 60 each 11 04/15/19 25 Active montelukast (Singulair) 10 MG tabletIndication s:Mild intermittent asthma without complication TAKE 1 TABLET (10 MG) BY MOUTH IN THE EVENING 90 tablet 1 04/20/19 25 Active omeprazole (PriLOSEC) [address] capsuleIndicatio ns:Gastroesophag eal reflux disease, unspecified whether esophagitis present TAKE 1 CAPSULE BY MOUTH TWICE A DAY 180 capsule 08/24/19 25 Active Nirmatrelvir&Rit onavir 300/100 (Paxlovid, 300/100,) 20 x 150 MG & 10 x 100MG tablet therapy packIndications: COVID Take 300 mg by mouth 2 times daily. Take 3 tablets 2x/day for 5 days 30 each 10/05/19 25 Active sodium chloride ([place] Nasal [place]) 0.65 % nasal sprayIndications :COVID Administer 1 spray into each nostril if needed for congestion. 30 mL 1 10/05/19 25 026 Active glipiZIDE (Glucotrol) 5 MG tablet 07/13/19 25 Active glipiZIDE XL (Glucotrol XL) 5 MG 24 hr tabletIndication s:Type 2 diabetes mellitus without complication, without long-term current use of insulin ([facility]) Take 5 mg by mouth Once per day. Do not crush, chew, or split. Active benzocaine-menth ol (Cepacol Sore Throat Ex St) 15-3.6 MGIndications:CO VID Dissolve 1 lozenge in the mouth every 2 (two) hours if needed for sore throat for up to 14 days. 168 lozenge 10/05/19 025 Active Problems Problem Noted Date Diagnosed Date Class 3 severe obesity due t o excess calories with serious comorbidity and body mass index (BMI) of 40.0 to 44.9 in adult 04/14/2024 Overview (10/20/2024): On Ozempic, 2 MG/DOSE, 8 MG/3ML solution pen-injector, for diabetes management. -Reviewed w/ pt side effects of GLP1 and how to mitigate incl eating small portions and do not eat through sensation of fullness. No personal or family h/o papillary thyroid cancer. No personal h/o pancreatitis. Does/does not have retinopathy. Refrigerate but do not freeze. BMI Readings from Last 3 Encounters: 10/20/24 41.95 kg/m 10/04/24 41.02 kg/m 04/14/24 41.99 kg/m Wt Readings from Last 3 Encounters: 10/20/24 244 lb 6.4 oz (111 kg) 10/04/24 239 lb (108 kg) 04/14/24 244 lb 9.6 oz (111 kg) -Encouraged to get in with [employer] and asking to switch to Mounjaro from Ozempic, given weight plateau on highest dose of Ozempic. 10/20/24 Assessment & Plan (10/20/2024 10:56 AM EDT): On Ozempic, 2 MG/DOSE, 8 MG/3ML solution pen-injector, for diabetes management. -Reviewed w/ pt side effects of GLP1 and how to mitigate incl eating small portions and do not eat through sensation of fullness. No personal or family h/o papillary thyroid cancer. No personal h/o pancreatitis. Does/does not have retinopathy. Refrigerate but do not freeze. BMI Readings from Last 3 Encounters: 10/20/24 41.95 kg/m 10/04/24 41.02 kg/m 04/14/24 41.99 kg/m Wt Readings from Last 3 Encounters: 10/20/24 244 lb 6.4 oz (111 kg) 10/04/24 239 lb (108 kg) 04/14/24 244 lb 9.6 oz (111 kg) -Encouraged to get in with [employer] and asking to switch to Mounjaro from Ozempic, given weight plateau on highest dose of Ozempic. 10/20/24 Assessment & Plan (04/14/2024 2:48 PM EST): Discussed weight, diet, exercise with patient in relation to health conditions. Used motivational interviewing to illicit change talk and established initial goals with patient. Cholelithiasis 08/12/2023 Transaminitis 07/17/2023 Overview (10/20/2024): Lab Results Component Value Date AST 21 11/25/2023 AST 27 03/29/2022 ALT 27 11/25/2023 ALT 32 (H) 03/29/2022 ALP 50 11/25/2023 DIRECTBILIRU 0.2 11/25/2023 -ultrasound 08/06/23 shows diffuse hematitic steatosis. Cholelithiasis. No gallbladder wall thickening or biliary dilatation appreciated. -ordered repeat FLP and LFT's 10/20/24 Assessment & Plan (10/20/2024 10:56 AM EDT): Lab Results Component Value Date AST 21 11/25/2023 AST 27 03/29/2022 ALT 27 11/25/2023 ALT 32 (H) 03/29/2022 ALP 50 11/25/2023 DIRECTBILIRU 0.2 11/25/2023 -ultrasound 08/06/23 shows diffuse hematitic steatosis. Cholelithiasis. No gallbladder wall thickening or biliary dilatation appreciated. -ordered repeat FLP and LFT's 10/20/24 Assessment & Plan (07/17/2023 12:48 PM EDT): Lab Results Component Value Date AST 35 (H) 07/16/2023 AST 27 03/29/2022 ALT 53 (H) 07/16/2023 ALT 32 (H) 03/29/2022 ALP 53 07/16/2023 DIRECTBILIRU 0.2 07/16/2023 - Labs and Ultrasound ordered 07/17/23 Cardiac risk counseling 06/20/2023 Overview (06/20/2023): Calculated 06/20/23: low risk The 10-year ASCVD risk score (Mkie SOLIS, et al., 2019) is: 0.9% Values used to calculate the score: Age: 43 years Sex: Female Is Non- : No Diabetic: Yes Tobacco smoker: No Systolic Blood Pressure: 137 mmHg Is BP treated: No HDL Cholesterol: 56 mg/dL Total Cholesterol: 158 mg/dL Lab Results Component Value Date LDLCHOL 88 03/29/2022 LDLCHOL 102 (H) 12/06/2019 LDLCHOL 102 (H) 12/06/2019 LDLCHOL 102 (H) 12/06/2019 -Tobacco cessation: not applicable -Statin therapy: rosuvastatin 20mg -Importance of moderate physical activity and nutrition interventions discussed. Chronic pain of right knee 06/04/2023 Overview (11/13/2023): Progressively worsening right knee pain and mechanical symptoms due to a medial meniscus tear on MRI. Treatment options discussed with Dre Cedeño MD of [facility] 06/18/23. She wishes to discuss her options at home with her . She will contact orthopedics to pick a surgery date if she chooses to do so. That surgery would involve right knee diagnostic arthroscopy with partial medial meniscectomy. Otherwise she will follow up on an as-needed basis. She asked me about surgery risk. Given her large vagus tumor, I am concerned about her airway management. I recommend she return to her ENT specialist in [place] and that she would need evaluation with anesthesia prior to any surgery for airway evaluation and discussion of lowest risk anesthesia. She saw [facility]NT 08/04/23 recommending - Based on her exam would consideration of her knee surgery at a facility that would be able to manage a complex airway. She would likely require an awake fiberoptic intubation given her oropharyngeal anatomy. She plans to postpone surgery. -Seen by Dr. Cedeño and s/p injection 11/13/23 She will continue with her home exercise program. She will follow up with me on an as-needed basis should her symptoms not plateau at an unacceptable level over the next few months. Assessment & Plan (07/17/2023 7:48 PM EDT): Progressively worsening right knee pain and mechanical symptoms due to a medial meniscus tear on MRI. Treatment options discussed with Dre Cedeño MD of [facility] 06/18/23. She wishes to discuss her options at home with her . She will contact orthopedics to pick a surgery date if she chooses to do so. That surgery would involve right knee diagnostic arthroscopy with partial medial meniscectomy. Otherwise she will follow up on an as-needed basis. She asked me about surgery risk. Given her large vagus tumor, I am concerned about her airway management. I recommend she return to her ENT specialist in [place] and that she would need evaluation with anesthesia prior to any surgery for airway evaluation and discussion of lowest risk anesthesia. Mild intermittent asthma without complication Overview (10/20/2024): Followed by pulmonology [facility] -Advair 250/500 started 01/18/2021 changed to Trelegy Ellipta 07/02/23 -continue Singulair -note from [facility] pulmonology reviewed 07/02/23: PFTs, CXR, PSG, labs for roundworm, ANCA, northeast allergen and IgE ordered 07/02/23, follow up 6 weeks -pt states she will call to schedule 04/14/24 Assessment & Plan (10/20/2024 10:56 AM EDT): Followed by pulmonology [facility]ology -Advair 250/500 started 01/18/2021 changed to Trelegy Ellipta 07/02/23 -continue Singulair -note from [facility] pulmonology reviewed 07/02/23: PFTs, CXR, PSG, labs for roundworm, ANCA, northeast allergen and IgE ordered 07/02/23, follow up 6 weeks -pt states she will call to schedule 04/14/24 Assessment & Plan (04/14/2024 2:48 PM EST): >>ASSESSMENT AND PLAN FOR MODERATE PERSISTENT ASTHMA WITH ACUTE EXACERBATION WRITTEN ON 04/25/2023 11:04 AM BY HAO DANIEL Controlled except in cold weather. -Advair 250/500 started 01/18/2021 -Referred to pulmonology 01/18/2021 she missed appoitnment. Given nubmer to call and reschedule -Completed covid vaccines -Referral placed to Pulmonology 04/25/23 - Start Prednisone 20 Mg; 3 tablets daily for two days and then 2 tablets for three days 04/25/23 Assessment & Plan (04/14/2024 2:48 PM EST): >>ASSESSMENT AND PLAN FOR MODERATE PERSISTENT ASTHMA WITH ACUTE EXACERBATION WRITTEN ON 04/14/2024 2:45 PM BY YONNY HYDE Followed by pulmonology [facility]monology -Advair 250/500 started 01/18/2021 changed to Trelegy Ellipta 07/02/23 -continue Singulair -note from [facility] pulmonology reviewed 07/02/23: PFTs, CXR, PSG, labs for roundworm, ANCA, northeast allergen and IgE ordered 07/02/23, follow up 6 weeks -pt states she will call to schedule 04/14/24 Anxiety 12/04/2022 Assessment & Plan (01/06/2023 9:09 AM EST): Assessment: Patient presents with symptoms of anxiety. No risk for self-harm, SI, or HI. Reason for BE was to assess symptoms, provided support and intervention and offer referrals. There are no identified triggers at this time. Provided psychoeducation around anxiety and how to cope with symptoms. An OP therapy referral will be placed. PCP will continue medication management. At this time Cheyanne Barillas Seth meets criteria for Visit Diagnoses: Problem List Items Addressed This Visit Other Depressive disorder Anxiety Patient ready to address current needs Yes Strengths include Cheyanne is in the action stage PLAN: 1. Follow up with [facility]: Not recommended for follow-up 2. Patient goal is decrease anxiety and be connected to a therapist 3. Behavioral Recommendations a. Continue to comply with medication b. Utilize coping skills provided c. Engage in therapy once established d. Reach out to [facility] for additional support Assessment & Plan (12/26/2022 7:36 PM EST): PHQ9 7 LONA 15 Reports anxiety for the past 6 years ,seen before by psychotx but again for the past 8 weeks having again anxiety no panic attacks Not yest resumed gabapentin , took last night trazodone 25 mg that helped to sleep -ok to continue for now trazodone 25 HS for now but if needed to take 50 mg at night -to resume hydroxyzine TID prn for anxiety -pt reports feeling more comfortable taking this med -pt prefers to hold on gabapentin for now but explained pt that medication can help with anxiety and if needed can consdier to resume -called to today to evaluate pt -Advised pt to get blood workup ordered at [facility] yesterday ( TSH,chem) Assessment & Plan (12/24/2022 8:23 PM EST): Patient calmed down significantly while she started talking in the room, she still declines psychotherapy referral. 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 She has decided to not treat Glomus vagale at this time. Start gabapentin 100mg bid + Trazodone 25mg bid prn anxiety and 50mg at bedtime DC Hydroxyzine. Fu w PCP in 1mo. Other specified health status 10/27/2022 Overview (10/20/2024): -next comprehensive annual evaluation due after 10/20/25 -eye care facilitated by [facility] -dental [facility] proxy filed 03/15/24 Assessment & Plan (10/20/2024 10:56 AM EDT): -next comprehensive annual evaluation due after 10/20/25 -eye care facilitated by [facility] -dental [facility] proxy filed 2/3/25 Assessment & Plan (07/17/2023 12:47 PM EDT): -next physical exam due after 07/16/2024 -eye care facilitated by [facility]. 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 Allen Vazquez MD, FACS at [facility] [phone] fax [phone] -At visit in 2010 pt decided to observe with CT angiogram duet to risk of loss of CN 10,11,and 12 with surgery -last CT/CTA was 2016, agrees to referral 02/20/2022 -CT done with [facility] (not able to copair to previous) 09/19/2022reveals larger hypervascular mass extending frorm infeior to carotid bifurcation to the jugular foramen with erosion of the gugular and hypoglossal foramina. Possible occlusion of the cephalad aspect of the left internal jugular vein. -Pt requests follow up with Dr. Allen Vazquez MD, FACS referral placed 12/04/2022. Pt was instructed to bring copy of her CT scan films and stressed the importance of showing given hx of nonadherent to visits -Seen by [facility] ENT 08/04/[address] Tamica Clinton MD - Ordered for updated CT neck. Will have her follow up with Dr. Vazquez to readdress potential treatment options. Will attempt to obtain outside imaging CD for comparison. Options for voice discussed. She has never undergone voice therapy, but would be interested in proceeding with that first. Less interested in an augmentation. Follow up with me in 3 months, sooner as indicated. -CT 08/12/23 at [facility] No acute intracranial hemorrhage. No acute, displaced cervical spine fracture. 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 -CT 12/03/23 with [facility] radiology stable 7.8 x 6.8 cm contrasting enhancing mass at the left carotid bifurcation noted large left carotid body paraganglioma. Atrophy of the left roxanne eof the tongue. -will assist in getting pt in with Dr. 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 Allen Vazquez MD, FACS at [facility] [phone] fax [phone] -At visit in 2010 pt decided to observe with CT angiogram duet to risk of loss of CN 10,11,and 12 with surgery -last CT/CTA was 2016, agrees to referral 02/20/2022 -CT done with [facility] (not able to copair to previous) 09/19/2022reveals larger hypervascular mass extending frorm infeior to carotid bifurcation to the jugular foramen with erosion of the gugular and hypoglossal foramina. Possible occlusion of the cephalad aspect of the left internal jugular vein. -Pt requests follow up with Dr. Allen Vazquez MD, FACS referral placed 12/04/2022. Pt was instructed to bring copy of her CT scan films and stressed the importance of showing given hx of nonadherent to visits -Seen by [facility] ENT 08/04/[address] Tamica Clinton MD - Ordered for updated CT neck. Will have her follow up with Dr. Vazquez to readdress potential treatment options. Will attempt to obtain outside imaging CD for comparison. Options for voice discussed. She has never undergone voice therapy, but would be interested in proceeding with that first. Less interested in an augmentation. Follow up with me in 3 months, sooner as indicated. -CT 08/12/23 at [facility] No acute intracranial hemorrhage. No acute, displaced cervical spine fracture. 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 -CT 12/03/23 with [facility] radiology stable 7.8 x 6.8 cm contrasting enhancing mass at the left carotid bifurcation noted large left carotid body paraganglioma. Atrophy of the left roxanne eof the tongue. -will assist in getting pt in with Dr. 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 Allen Vazquez MD, FACS at [facility] [phone] fax [phone] -At visit in 2010 pt decided to observe with CT angiogram duet to risk of loss of CN 10,11,and 12 with surgery -last CT/CTA was 2016, agrees to referral 02/20/2022 -CT done with [facility] (not able to copair to previous) 09/19/2022reveals larger hypervascular mass extending frorm infeior to carotid bifurcation to the jugular foramen with erosion of the gugular and hypoglossal foramina. Possible occlusion of the cephalad aspect of the left internal jugular vein. -Pt requests follow up with Dr. Allen Vazquez MD, FACS referral placed 12/04/2022. 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 Allen Vazquez MD, FACS at [facility] [phone] fax [phone] -At visit in 2010 pt decided to observe with CT angiogram duet to risk of loss of CN 10,11,and 12 with surgery -last CT/CTA was 2016, agrees to referral 02/20/2022 -CT done with [facility] (not able to copair to previous) 09/19/2022reveals larger hypervascular mass extending frorm infeior to carotid bifurcation to the jugular foramen with erosion of the gugular and hypoglossal foramina. Possible occlusion of the cephalad aspect of the left internal jugular vein. -Pt requests follow up with Dr. Allen Vazquez MD, FACS referral placed 12/04/2022. 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 Allen Vazquez MD, FACS at [facility] [phone] fax [phone] -At visit in 2010 pt decided to observe with CT angiogram duet to risk of loss of CN 10,11,and 12 with surgery -Unable to tolerate open CT scan. 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 Dyslipidemia 11/15/2011 Overview (10/20/2024): Lab Results Component Value Date CHOL 147 11/25/2023 CHOL 180 07/16/2023 TRIG 41 11/25/2023 TRIG 52 07/16/2023 TRIG 47 03/29/2022 HDL 65 11/25/2023 HDL 60 07/16/2023 LDLCHOLCAL 74 11/25/2023 LDLCHOLCAL 110 (H) 07/16/2023 -continue rosuvastatin 20mg -continue lifestyle modification -ordered repeat LFT and FLP 10/20/24 Assessment & Plan (10/20/2024 10:56 AM EDT): Lab Results Component Value Date CHOL 147 11/25/2023 CHOL 180 07/16/2023 TRIG 41 11/25/2023 TRIG 52 07/16/2023 TRIG 47 03/29/2022 HDL 65 11/25/2023 HDL 60 07/16/2023 LDLCHOLCAL 74 11/25/2023 LDLCHOLCAL 110 (H) 07/16/2023 -continue rosuvastatin 20mg -continue lifestyle modification -ordered repeat LFT and FLP 10/20/24 Orders: Hepatic Function Panel; Future Lipid Panel, Standard; Future Assessment & Plan (07/17/2023 12:49 PM EDT): Component Ref Range & Units 1 yr ago 3 yr ago Cholesterol, Total <200 mg/dL 158 174 HDL Cholesterol > OR = 50 mg/dL 56 58 Triglycerides <150 mg/dL 47 56 LDL Cholesterol mg/dL (calc) 88 102 High CM -continue rosuvastatin 20mg -continue lifestyle modification Assessment & Plan (01/29/2023 2:54 PM EST): Lab Results Component Value Date TRIG 47 03/29/2022 Lab Results Component Value Date CHOLESTEROL 158 03/29/2022 HDLCHOL 56 03/29/2022 TRIG 47 03/29/2022 LDLCHOL 88 03/29/2022 CHOLHDLRAT 2.8 03/29/2022 NONHDLCHOL 102 03/29/2022 -continue lifestyle modifications Glomus vagale 11/15/2011 Overview (10/20/2024): -large, chronic left neck mass, 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 Allen Vazquez MD, FACS at [facility] [phone] fax [phone] -At visit in 2010 pt decided to observe with CT angiogram duet to risk of loss of CN 10,11,and 12 with surgery -last CT/CTA was 2016, agrees to referral 02/20/2022 -CT done with [facility] (not able to copair to previous) 09/19/2022reveals larger hypervascular mass extending frorm infeior to carotid bifurcation to the jugular foramen with erosion of the gugular and hypoglossal foramina. Possible occlusion of the cephalad aspect of the left internal jugular vein. -Pt requests follow up with Dr. Allen Vazquez MD, FACS referral placed 12/04/2022. Pt was instructed to bring copy of her CT scan films and stressed the importance of showing given hx of nonadherent to visits -Seen by [facility] ENT 08/04/[address] Tamica Clinton MD - Ordered for updated CT neck. Will have her follow up with Dr. Vazquez to readdress potential treatment options. Will attempt to obtain outside imaging CD for comparison. Options for voice discussed. She has never undergone voice therapy, but would be interested in proceeding with that first. Less interested in an augmentation. Follow up with me in 3 months, sooner as indicated. -CT 08/12/23 at [facility] No acute intracranial hemorrhage. No acute, displaced cervical spine fracture. 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 -CT 12/03/23 with [facility] radiology stable 7.8 x 6.8 cm contrasting enhancing mass at the left carotid bifurcation noted large left carotid body paraganglioma. Atrophy of the left roxanne eof the tongue. -will assist in getting pt in with Dr. Palomino -Saw ENT, Nasrin Moses [employer]-BC 05/03/24: Discussed intervention options, but pt would prefer to continue to monitor. Will need repeat CT angiogram in 12 months to assess for change via PCP. -Ordered CT angiogram 10/21/23 to be done within the next two months prior to follow-up in Dec 2024. 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 Allen Vazquez MD, FACS at [facility] [phone] fax [phone] -At visit in 2010 pt decided to observe with CT angiogram duet to risk of loss of CN 10,11,and 12 with surgery -last CT/CTA was 2016, agrees to referral 02/20/2022 -CT done with [facility] (not able to copair to previous) 09/19/2022reveals larger hypervascular mass extending frorm infeior to carotid bifurcation to the jugular foramen with erosion of the gugular and hypoglossal foramina. Possible occlusion of the cephalad aspect of the left internal jugular vein. -Pt requests follow up with Dr. Allen Vazquez MD, FACS referral placed 12/04/2022. Pt was instructed to bring copy of her CT scan films and stressed the importance of showing given hx of nonadherent to visits -Seen by [facility]NT 08/04/[address] Tamica Clinton MD - Ordered for updated CT neck. Will have her follow up with Dr. Vazquez to readdress potential treatment options. Will attempt to obtain outside imaging CD for comparison. Options for voice discussed. She has never undergone voice therapy, but would be interested in proceeding with that first. Less interested in an augmentation. Follow up with me in 3 months, sooner as indicated. -CT 08/12/23 at [facility] No acute intracranial hemorrhage. No acute, displaced cervical spine fracture. 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 -CT 12/03/23 with [facility] radiology stable 7.8 x 6.8 cm contrasting enhancing mass at the left carotid bifurcation noted large left carotid body paraganglioma. Atrophy of the left roxanne eof the tongue. -will assist in getting pt in with Dr. Palomino -Saw ENT, Nasrin Moses [employer]- 05/03/24: Discussed intervention options, but pt would prefer to continue to monitor. Will need repeat CT angiogram in 12 months to assess for change via PCP. -Ordered CT angiogram 10/21/23 to be done within the next two months prior to follow-up in Dec 2024. 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 Allen Vazquez MD, FACS at [facility] [phone] fax [phone] -At visit in 2010 pt decided to observe with CT angiogram duet to risk of loss of CN 10,11,and 12 with surgery -last CT/CTA was 2016, agrees to referral 02/20/2022 -CT done with [facility] (not able to copair to previous) 09/19/2022reveals larger hypervascular mass extending frorm infeior to carotid bifurcation to the jugular foramen with erosion of the gugular and hypoglossal foramina. Possible occlusion of the cephalad aspect of the left internal jugular vein. -Pt requests follow up with Dr. Allen Vazquez MD, FACS referral placed 12/04/2022. Pt was instructed to bring copy of her CT scan films and stressed the importance of showing given hx of nonadherent to visits -Seen by [facility] 08/04/[address] Tamica Clinton MD - Ordered for updated CT neck. Will have her follow up with Dr. Vazquez to readdress potential treatment options. Will attempt to obtain outside imaging CD for comparison. Options for voice discussed. She has never undergone voice therapy, but would be interested in proceeding with that first. Less interested in an augmentation. Follow up with me in 3 months, sooner as indicated. -CT 08/12/23 at [facility] No acute intracranial hemorrhage. No acute, displaced cervical spine fracture. 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 -CT 12/03/23 with [facility] stable 7.8 x 6.8 cm contrasting enhancing mass at the left carotid bifurcation noted large left carotid body paraganglioma. Atrophy of the left roxanne eof the tongue. -will assist in getting pt in with Dr. Palomino Assessment & Plan (12/26/2022 7:37 PM EST): Denies any change in mass ,denies to have difficulty breathing from mass -has apt w new ENT for 02/11/2023 Low back pain 11/15/2011 Severe obesity 11/15/2011 HILLARY (obstructive sleep apnea) 11/15/2011 Overview (08/04/2023): Patient no showed to neurology and sleep medicine 05/08/2023, encouraged to call for follow up Assessment & Plan (10/20/2024 10:56 AM EDT): Patient no showed to neurology and sleep medicine 05/08/2023, encouraged to call for follow up Assessment & Plan (12/26/2022 7:37 PM EST): HILLARY not using machine -states never received machine --- pt w episodes of apnea and loud snoring -referred today to sleep medicine Type 2 diabetes mellitus 11/15/2011 Overview (10/20/2024): -Followed by [facility] -Diabetes is improved by not controlled. Lab Results Component Value Date HGBA1C 8.3 (A) 04/14/2024 HGBA1C 10.8 (H) 07/16/2023 HGBA1C 9.0 (A) 01/29/2023 Lab Results Component Value Date CREATININE 0.70 07/16/2023 EGFR >60 07/16/2023 MICROALBCREU 23.1 07/16/2023 LDLCHOLCAL 110 (H) 07/16/2023 -Duy/Arb: none -Statin therapy: Has not been receiving Rosuvastatin in [facility]. Restart Rosuvastatin 20 mg 07/17/23 -Diabetic eye exam with [facility] 09/21/24 -Diabetic foot exam: 04/14/24 -Continue lifestyle modifications -Continue current medications -On Glipizide, metformin, and Ozempic. Not taking Lantus(discontinued). -Encouraged to get in with [facility] and asking to switch to Mounjaro from Ozempic, given weight plateau on highest dose of Ozempic. 10/20/24 Assessment & Plan (10/20/2024 10:56 AM EDT): -Followed by [facility] -Diabetes is improved by not controlled. Lab Results Component Value Date HGBA1C 8.3 (A) 04/14/2024 HGBA1C 10.8 (H) 07/16/2023 HGBA1C 9.0 (A) 01/29/2023 Lab Results Component Value Date CREATININE 0.70 07/16/2023 EGFR >60 07/16/2023 MICROALBCREU 23.1 07/16/2023 LDLCHOLCAL 110 (H) 07/16/2023 -Duy/Arb: none -Statin therapy: Has not been receiving Rosuvastatin in [facility]. Restart Rosuvastatin 20 mg 07/17/23 -Diabetic eye exam with [facility] 09/21/24 -Diabetic foot exam: 04/14/24 -Continue lifestyle modifications -Continue current medications -On Glipizide, metformin, and Ozempic. Not taking Lantus(discontinued). -Encouraged to get in with [facility] and asking to switch to Mounjaro from Ozempic, given weight plateau on highest dose of Ozempic. 10/20/24 Orders: Albumin, Random Urine W/Creatinine; Future Basic Metabolic Panel; Future POCT glucose manually resulted Assessment & Plan (04/14/2024 2:46 PM EST): -Followed by [facility] -Diabetes is improved by not controlled. Lab Results Component Value Date HGBA1C 8.3 (A) 04/14/2024 HGBA1C 10.8 (H) 07/16/2023 HGBA1C 9.0 (A) 01/29/2023 Lab Results Component Value Date CREATININE 0.70 07/16/2023 EGFR >60 07/16/2023 MICROALBCREU 23.1 07/16/2023 LDLCHOLCAL 110 (H) 07/16/2023 -Duy/Arb: none -Statin therapy: Has not been receiving Rosuvastatin in [facility]. Restart Rosuvastatin 20 mg 07/17/23 -Diabetic eye exam with [facility] 10/22/22 -Diabetic foot exam: 04/14/24 -Continue lifestyle modifications -Continue current medications Assessment & Plan (07/17/2023 12:50 PM EDT): -Followed by [facility] -Diabetes is improved by not controlled. Lab Results Component Value Date HGBA1C 10.8 (H) 07/16/2023 HGBA1C 9.0 (A) 01/29/2023 HGBA1C 9.6 (A) 12/04/2022 Lab Results Component Value Date CREATININE 0.70 07/16/2023 EGFR >60 07/16/2023 MICROALBCREU 23.1 07/16/2023 LDLCHOLCAL 110 (H) 07/16/2023 -Udy/Arb: none -Statin therapy: Has not been receiving Rosuvastatin in [facility]. Restart Rosuvastatin 20 mg 07/17/23 -Diabetic eye exam with [facility] 10/22/22 -Diabetic foot exam: 01/29/23 -Continue lifestyle modifications -Continue current medications Assessment & Plan (07/11/2023 8:53 PM EDT): -f w [facility]-states not getting trulicity for last month not available- pt reports she spoke w [facility]-'s office today and was told they will either change dose or med ? --advised pt to call to specialist if not receiving a call from px -may need to change to ozempic Assessment & Plan (01/29/2023 4:48 PM EST): -Followed by [facility] Diabetes is controlled. - Lab Results Component Value Date HGBA1C 9.6 (A) 12/04/2022 HGBA1C 9.5 (A) 02/20/2022 HGBA1C 12.3 (H) 12/06/2019 HGBA1C 12.3 (H) 12/06/2019 -No results found for: POCA1C - Lab Results Component Value Date MICROALBUR 0.8 12/06/2019 MICROALBUR 0.8 12/06/2019 CREATININE 0.61 09/12/2022 -Duy/Arb:none -Statin therapy: rosuvastatin 20mg -Diabetic eye exam with [facility] 10/22/22 -Diabetic foot exam: 01/29/23 -Continue lifestyle modifications Followed [facility] for type 2 diabetes last seen on 01/16/23. Did not tolorate jardiance and januvia, was discontinued due to anxiety, attempting to order CGM. Continue trulicity 4.5 weekly and metformen ER. Assessment & Plan (12/04/2022 11:59 AM EDT): -Followed by [facility] Diabetes is controlled. - Lab Results Component Value Date HGBA1C 9.5 (A) 02/20/2022 HGBA1C 12.3 (H) 12/06/2019 HGBA1C 12.3 (H) 12/06/2019 -No results found for: POCA1C - Lab Results Component Value Date MICROALBUR 0.8 12/06/2019 MICROALBUR 0.8 12/06/2019 CREATININE 0.61 09/12/2022 -Duy/Arb: -Statin therapy: -Diabetic eye exam: -Diabetic foot exam: -Continue lifestyle modifications -Continue current medications Assessment & Plan (05/17/2022 11:56 AM EDT): -Followed by [facility] Assessment & Plan (02/20/2022 11:34 AM EST): -Followed by [facility] Vitamin D deficiency 11/15/2011 Overview (10/20/2024): Lab Results Component Value Date [id number] 14.5 (L) 11/25/2023 -weekly vit d started 11/25/23 -repeat Vit D level 10/20/24 Assessment & Plan (10/20/2024 10:56 AM EDT): Lab Results Component Value Date [id number] 14.5 (L) 11/25/2023 -weekly vit d started 11/25/23 -repeat Vit D level 10/20/24 Assessment & Plan (04/14/2024 2:46 PM EST): Lab Results Component Value Date [id number] 14.5 (L) 11/25/2023 -weekly vit d started 11/25/23 Resolved Problems Problem Noted Date Diagnosed Date Resolved Date Dietary counseling 04/14/2024 Assessment & Plan (04/14/2024 2:48 PM EST): Dietary Recommendations: Fruits, vegetables, whole grains, protein foods, and fat-free or low-fat dairy products are healthy choices. Eat different types of protein foods in your diet. This can include seafood, lean meats, poultry, beans, peas, lentils, nuts, seeds, soy products, and eggs. Limit foods and beverages higher in added sugars, saturated fat, and sodium. Exercise counseling 04/14/2024 10/21/19 Assessment & Plan (04/14/2024 2:48 PM EST): Exercise Recommendations: At least 150 minutes of moderate-intensity physical activity per week, or an equivalent combination of moderate- and vigorous-intensity activity Hair loss 07/11/2023 07/16/2023 Assessment & Plan (07/11/2023 8:55 PM EDT): Reports couple of months w intense hair loss ,but worsen in last week , no scalp itching , no new meds, reports noted feeling colder lately, denies constipation. Does feels tired Pt has obesity, hirsutism,also noted dandruff -stop selenium shampoo and start ketokonazole shampoo -syphilis, TSH,chem ,CBC, ,free and/or total testosterone level and dehydroepiandrosterone sulfate (DHEAS) level as initial screening tests -advised to do test in early am -has apt w PCP 08/06/2023 scheduled already , if no obvious cause may need dermatology referral at next apt Physical exam 01/27/2023 02/25/2024 Overview (01/27/2023): -Normal growth and development. -Anticipatory guidance discussed. -Preventative care / harm reduction discussed. Assessment & Plan (07/17/2023 12:47 PM EDT): -Normal growth and development. -Anticipatory guidance discussed. -Preventative care / harm reduction discussed. Assessment & Plan (01/27/2023 12:36 PM EST): -Normal growth and development. -Anticipatory guidance discussed. -Preventative care / harm reduction discussed. Candidal vulvovaginitis 08/12/202210/11 Seasonal allergies 06/25/2022 Acute rhinitis 06/25/2022 10/27/2022 Overview (06/25/2022): Continue zyrtec. Given Flonase. Assessment & Plan (06/25/2022 5:56 PM EDT): Continue zyrtec. Given Flonase. Acute bacterial sinusitis 06/25/2022 Overview (06/25/2022): Treated with amoxicillin. Assessment & Plan (06/25/2022 5:53 PM EDT): Treated with amoxicillin. Encounters Date Type Department Care Team Description 10/27/2024 Telephone [facility] [address] [place] [phone] Tamica Duran MD Referral 10/20/2024 10:15 AM EDT Office Visit [facility] [address] [place] [phone] Tamica Duran MD Type 2 diabetes mellitus without complication, without long-term current use of insulin (CMS/HCC) (Primary Dx); Glomus vagale (CMS/HCC); Mild intermittent asthma without complication; HILLARY (obstructive sleep apnea); Dyslipidemia; Transaminitis; Vitamin D deficiency; Trigger middle finger of left hand; Chronic pain of both shoulders; Class 3 severe obesity due to excess calories with serious comorbidity and body mass index (BMI) of 40.0 to 44.9 in adult; Dietary counseling; Exercise counseling; Other specified health status 10/20/2024 Telephone [facility] [address] [place] [address] aTmica Duran MD notes 10/20/2024 Telephone [facility] [address] [place] [address] Tamica Duran MD 10/20/2024 Travel 10/19/2024 Telephone [facility] [address] [place] [phone] Tamica Duran MD chart prep 10/04/2024 7:40 PM EDT Office Visit [facility] [address] [place] [address] Amy White NP COVID (Primary Dx); Cough in adult 10/04/2024 Travel 09/21/2024 10:00 AM EDT Office Visit [facility] [address] [place] [address] Sreedhar, Cass, OD Mild nonproliferative diabetic retinopathy of both eyes without macular edema associated with type 2 diabetes mellitus ([facility]) (Primary Dx) 09/21/2024 Travel 08/24/2024 Refill [facility] [address] [place] [address] Tamica Duran MD Pain 08/21/2024 Refill [facility] [address] [place] [phone] Tamica Duran MD Gastroesophageal reflux disease, unspecified whether esophagitis present from Last 3 Months Immunizations Immunization Administration Dates Next Due Hep B, adult 07/17/2023,01/29/2023,12/04/2022 Influenza, IIV3, injectable 11/23/2010 Influenza, Split (incl. rodo fied surface antigen) 11/15/2011 Pfizer Covid-19 Vaccine 12+ 11/29/2020,1 ,10/30/2020,10/30 Pneumococcal Conjugate PCV 20 12/04/2022 Pneumococcal Polysaccharide PPSV23 09/08/2007 Pneumococcal, Unspecified 09/08/2007 Tdap 12/04/2022,11/15/2011 Family History Medical History Relation Name Comments Dementia Mother Diabetes Mother Bone cancer Mother's Sister Relation Name Status Comments Mother Mother's Sister Social History Tobacco Use Types Packs/Day Years Used Date Smoking Tobacco: Former Cigarettes Passive Smoke Exposure: Past Smokeless Tobacco: Never Tobacco Cessation:Counseling Given: Not Answered Alcohol Use Standard Drinks/Week Comments Yes 0 [...] want or need it 10/11 Comments Unknown Intention Date Recorded No desire to become (finding) 0 04/14/2024 Sex and Gender Information Value Date Recorded Sex Assigned at Female 12/10/2021 10:19 AM EDT Legal Sex Female 10:19 AM EDT Gender Identity Female 12/10/2021 10:19 AM EDT Sexual Orientation Straight 12/10/2021 10 :19 AM EDT Last Filed Vital Signs Vital Sign Reading Time Taken Comments Blood Pressure 124/86 10/20/2024 9:39 AM EDT Pulse 91 10/20/2024 9:39 AM EDT Temperature 37.2 C (98.9 F) 10/20/2024 9:39 AM EDT Respiratory Rate 20 10/20/2024 9:39 AM EDT Oxygen Saturation 98% 10/20/2024 9:39 AM EDT Inhaled Oxygen Concentration - - Weight 111 kg (244 lb 6.4 oz) 10/20/2024 9:39 AM EDT Height 162.6 cm (5' 4 ) 10/20/2024 9:39 AM EDT Body Mass Index 41.95 10/20/2024 9:39 AM EDT Plan of Treatment Upcoming Encounters Date Type Department Care Team (Late st Contact Info) Description 11/05/2024 11:30 AM EDT Office Visit [facility] [address] [place], [place] [phone] Sreedhar, Cass, OD [address] [place] [address] Health Maintenance Due Date Last Done Comments HPV Vaccines (1 - 3-dose series) 1996 Diabetes: Urine Protein Screening 07/15/2024 07/16/2023, 12/06/2019 COVID-19 Vaccine ( season) 2024 11/29/2020, 11/29/2020, 10/30/2020, Additional history exists Influenza Vaccine (#1) 2024 11/15/2011, 2010 Lipid Panel 11/24/2024 11/25/2023, 06/0 06/2023, 03/29/2022, Additional history exists Pap Smear 12/02/2024 12/02/2021, 11/02/2021 Mammogram 12/22/2024 12/13/2023, 08/02/2022, 04/24/2021, Additional history exists Diabetes: Hemoglobin A1C 01/19/2025 025, 04/14/2024, 07/16/2023, Additional history exists Alcohol/Substance Use Screening 04/14/2025 04/14/2024 Depression Screening 04/14/2025 04/14/2024, 04/15/19 25 Diabetes: Foot Exam 04/14/2025 04/14/2024, 04/14/2024, 04/14/2024, Additional history exists Family Planning (PISQ) 04/14/2025 04/14/2024 Eye Exam 09/21/2025 09/21/2024, 10/22/2022 Disability Screening 10/20/2025 10/20/2024 SDOH Screening 10/20/2025 10/20/2024 Tobacco Screening 10/20/2025 10/20/2024 Cervical Cancer Screening 11/02/2026 HPV/Cotest 11/02/2026 11/02/2021, 11/02/2021 Zoster Vaccines (1 of 2) 2031 DTaP/Tdap/Td Vaccines (3 - Td or Tdap) 12/04/2032 12/04/2022, 11/15/2011 RSV Patients and Patients Aged 60 years or older (1 - 1-dose 75+ series) 2056 HIV Screening Completed 03/29/2022 Pneumococcal Vaccine: Pediatrics (0 to 5 Years) and At-Risk Patients (6 to 49) Years Completed 12/04/2022, 09/08/2007, 09/08/2007 Hepatitis B Vaccines Completed 07/17/2023, 01/29/2023, 12/04/2022 Hepatitis C Screening Completed 11/25/2023, 023 Derm Melanoma Skin Check Discontinued HIB Vaccines Aged Out No longer eligi ble based on patient's age to complete this topic Hepatitis A Vaccines Aged Out No long er eligible based on patient's age to complete this topic IPV Vaccines Aged Out No longer eligi ble based on patient's age to complete this topic Meningococcal B Vaccine Aged Out No l onger eligible based on patient's age to complete this topic Meningococcal Vaccine Aged Out No kymberly ivelisse eligible based on patient's age to complete this topic RSV under 20 months Aged Out No longe r eligible based on patient's age to complete this topic Rotavirus Vaccines Aged Out No longer eligible based on patient's age to complete this topic Procedures Procedure Name Priority Date/Time Associated Diagnosis Comments AMB REFERRAL TO PHYSICAL THERAPY Routine 10/27/2024 Chronic pain of both shoulders POCT GLYCATED HEMOGLOBIN, TOTAL Routine 10/20/2024 10:23 AM EDT Type 2 diabetes mellitus without complication, without long-term current use of insulin ([facility]) POCT GLUCOSE Routine 10/20/2024 10:22 AM EDT Type 2 diabetes mellitus without complication, without long-term current use of insulin (CMS/HCC) POCT INFLUENZA B (ID NOW RAPID MOLECULAR) Routine 10/04/2024 8:03 PM EDT Cough in adult POCT INFLUENZA A (ID NOW RAPID MOLECULAR) Routine 10/04/2024 8:03 PM EDT Cough in adult POCT RAPID COVID ANTIGEN Routine 10/04/2024 8:02 PM EDT Cough in adult FUNDUS PHOTOS - OU - BOTH EYES Routine 09/21/2024 10:00 AM EDT Mild nonproliferative diabetic retinopathy of both eyes without macular edema associated with type 2 diabetes mellitus (CMS/HCC) BI MAMMOGRAM SCREENING TOMOSYNTHESIS BILATERAL Routine 12/13/2023 10:00 AM EDT HEPATITIS PANEL, GENERAL Routine 11/25/2023 9:11 AM EDT Transaminitis LIPID PANEL, STANDARD Routine 11/25/2023 9:11 AM EDT Mild intermittent asthma without complication Transaminitis ALBUMIN, RANDOM URINE W/CREATININE Routine 07/16/2023 8:56 AM EDT Type 2 diabetes mellitus without complication, without long-term current use of insulin (CMS/HCC) HM DIABETES EYE EXAM Routine 10/22/2022 HIV 1/2 ANTIGEN/ANTIBODY, FOURTH GENERATION W/RFL Routine 03/29/2022 9:23 AM EST Routine screening for STI (sexually transmitted infection) HM PAP/HPV Routine 12/02/2021 HPV HIGH RISK PCR Routine 11/02/2021 12: 00 AM EDT from Last 3 Months or Most Recently Relevant to Health Maintenance Results * Referral to Physical Therapy (10/27/2024) Tamica Duran MD OUTPATIENT REFERRAL ORDERA BLES Final Result * (ABNORMAL) POCT Hgb A1c (10/20/2024 10:23 AM EDT) [facility] Hemoglobin A1C 8.1(A) 4.0 - 5.7 % QC Media Lot # [id number] Lot# Expiration Date Blood 10/20/2024 10:2 3 AM EDT Tamica Duran MD POINT OF CARE TEST ENTER/E DIT ORDERABLES Final Result * (ABNORMAL) POCT glucose manually resulted (10/20/2024 10:22 AM EDT) [facility] Glucose Blood, POC 255(A) 60 - 200 mg/dL QC Media Lot # [id number] Lot# Expiration Date 743, Blood Capillary blood specimen / Unknown 10/20/2024 10:22 AM EDT Tamica Duran MD POINT OF CARE TEST ENTER/E DIT ORDERABLES Final Result * Influenza B (ID NOW Rapid Molecular) (10/04/2024 8:03 PM EDT) [facility] Influenza B Negative Negative, Indeterminate [facility] Swab 10/04/2024 8:03 PM EDT Amy White NP POINT OF CARE TEST ENTER/EDIT O RDERABLES Final Result [facility] [address] [place] [phone] * Influenza A (ID NOW Rapid Molecular) (10/04/2024 8:03 PM EDT) [facility] Influenza A Negative Negative, Indeterminate [facility] Swab 10/04/2024 8:03 PM EDT Amy White MAKER UP FOLDING POINT OF CARE TEST ENTER/EDIT O RDERABLES Final Result [facility] [address] [place] [address] [phone] * (ABNORMAL) POCT Rapid COVID Ag (10/04/2024 8:02 PM EDT) Rapid COVID Ag Positive Swab 10/04/2024 8:02 PM EDT Amy White MAKER UP FOLDING POINT OF CARE TEST ENTER/EDIT O RDERABLES Edited Result - Final * Fundus Photos - OU - Both Eyes (09/21/2024 10:00 AM EDT) Narrative Cass Eli, OD - 10/18/2024 3:34 PM EDT Images from the original result were not included. Right Eye Progression has no prior data. Disc findings include normal observations (C/D: 0.1/0.1, no NVD). Macula findings include normal observations (No CSME). Vessel findings include normal observations. Periphery findings include (Few scattered MA's in posterior pole, no NVE). Left Eye Progression has no prior data. Disc findings include normal observations (C/D: 0.1/0.1, no NVD). Macula findings include normal observations (No CSME). Vessel findings include normal observations. Periphery findings include (Few scattered MA's in posterior pole, no NVE). Notes Assessment and Plan: Mild non-proliferative diabetic retinopathy (NPDR) in both eyes, no macular edema suspected in either eye. Will monitor with a dilated eye exam in 1 year. us Cass Eli OD OPHTH PHOTOGRAPHY Final Resul t * BI Mammogram Screening Tomosynthesis Bilateral (12/13/2023 10:00 AM EDT) Anatomical Region Laterality Modality Breast Bilateral Mammography 12/13/2023 10:0 0 AM EDT Narrative 12/23/2023 10:40 AM EST [address] [place] [address] Mammography Report Signed Patient: Cheyanne Lawson MR#: [id number] : 1980 Acct:[id number] Age/Sex: 43 / F ADM Date: 12/13/23 Loc: HO.MAMMO Attending Dr: Tamica Duran MD Ordering Physician: Tamica Duran MD Results: 1N egative Date of Service: 12/13/23 Follow Up: 1 Year From Orig inal Mammogram Procedure(s): MM tomosynthesis screening BI Accession Number(s): [id number] cc: Tamica Duran MD EXAMINATION: MM SCREENING DIGITAL BREAST TOMOSYNTHESIS, BILATERAL CLINICAL INFORMATION: Screening. Asymptomatic. COMPARISON: Mammography: Comparison is made with available priors TECHNIQUE: Digital breast mammography with tomosynthesis is performed in both the craniocaudal and mediolateral oblique views along with computer-aided detection (CAD). FINDINGS: There are scattered areas of fibroglandular density (ACR BI-RADS breast composition Category b). There are no significant masses, abnormal calcifications, or other abnormalities. MM/MM tomosynthesis screening BI IMPRESSION: No mammographic evidence of malignancy. ASSESSMENT: BI-RADS BI-RADS 1 - Negative RECOMMENDATION: Routine annual mammography screening. 1 year F/U This examination should not preclude the clinical evaluation of a suspicious palpable abnormality. This patient's information was entered into a reminder system with a target due date for their next mammogram. Electronically signed by: Aliya Spence DO 12/23/2023 10:37 AM EST Dictated By: Aliya Spence DO Signed By: <Electronically signed by Aliya Spence DO in OV> 12/23/23 1037 DD/ 1000 TD/TT: 12/13/23 1015 Health Care Recruiter: Procedure Note Donotuseinterpreter, Image - 12/23/[address] [place] [address] Mammography Report Signed Patient: Cheyanne LawsonMR#: [id number] : 1980Acct:[id number] Age/Sex: 43 / FADM Date: 12/13/23 Loc: HO.MAMMO Attending Dr: Tamica Duran MD Ordering Physician: Tamica Duran MDResults: 1N egative Date of Service: 12/13/23Follow Up: 1 Year From Orig inal Mammogram Procedure(s): MM tomosynthesis screening BI Accession Number(s): [id number] cc: Tamica Duran MD EXAMINATION: MM SCREENING DIGITAL BREAST TOMOSYNTHESIS, BILATERAL CLINICAL INFORMATION: Screening. Asymptomatic. COMPARISON: Mammography: Comparison is made with available priors TECHNIQUE: Digital breast mammography with tomosynthesis is performed in both the craniocaudal and mediolateral oblique views along with computer-aided detection (CAD). FINDINGS: There are scattered areas of fibroglandular density (ACR BI-RADS breast composition Category b). There are no significant masses, abnormal calcifications, or other abnormalities. MM/MM tomosynthesis screening BI IMPRESSION: No mammographic evidence of malignancy. ASSESSMENT: BI-RADS BI-RADS 1 - Negative RECOMMENDATION: Routine annual mammography screening. 1 year F/U This examination should not preclude the clinical evaluation of a suspicious palpable abnormality. This patient's information was entered into a reminder system with a target due date for their next mammogram. Electronically signed by: Aliya Spence DO 12/23/2023 10:37 AM EST Dictated By: Aliya Spence DO Signed By: <Electronically signed by Aliya Spence DO in OV> 12/23/23 1037 DD/ 1000 TD/TT: 12/13/23 1015 Health Care Recruiter: us Tamica Duran MD IMG BI PROCEDURES Final Re sult * Hepatitis Panel, General (11/25/2023 9:11 AM EDT) Hepatitis A IgM Nonreactive Nonreactive [facility] Comment:IgM antibodies to TILLEY V not detected; does not exclude earlyacute or recovered HAV infection. ~Hepatitis B Surface Antibody REACTIVE Nonreactive [facility] Comment:REACTIVE: > 11.99 mI U/mL Hepatitis B Core Antibody Nonreactive Nonreactive [facility] Hepatitis C Antibody Nonreactive Nonreactive [facility] Comment:Antibodies to HCV no t detected; does not exclude early acuteHCV infection. Hepatitis B Surface Ag Negative Negative [facility] Blood Venous blood specimen / Unknown 11/25/2023 9:11 AM EDT 11/25/2023 11:11 AM EDT Tamica Duran MD LAB BLOOD ORDERABLES Final Result Performing Organization Address City/[facility]/ZIP Co de Phone Number [facility] [address] [place] [phone] * Lipid Panel, Standard (11/25/2023 9:11 AM EDT) Triglycerides 41 <150 mg/dL [facility] Comment:Desirable Triglyceri de: less than 150 mg/dLBorderline High Triglyceride 150-199 mg/dLHigh Triglyceride: 200-499 mg/dLVery High Triglyceride: greater than or equal to 5OO mg/dL Cholesterol 147 <200 mg/dL [facility] Comment:Desirable Cholestero l: less than 200 mg/dLBorderline High Cholesterol: 200-239 mg/dLHigh Cholesterol: greater than 239 mg/dL LDL Cholesterol Calculated 74 <100 mg/dL [facility] Comment:Desirable LDL: less than 100 mg/dLNear Optimal/Above Optimal LDL: 110- 129 mg/dLBorderline High LDL: 130-159 mg/dLHigh LDL: 160-189 mg/dLVery High LDL: greater than or equal to 190 mg/dL HDL Cholesterol 65 >40 mg/dL [facility] Comment:Desirable HDL: great er than 40 mg/dL Note: This HDL assay may give artificially low results in patients with liver disease. Blood Venous blood specimen / Unknown 11/25/2023 9:11 AM EDT 11/25/2023 11:11 AM EDT us Tamica Duran MD LAB BLOOD ORDERABLES Final Result Performing Organization Address City/[facility]/ZIP Co de Phone Number [facility] [address] [place] [phone] * Albumin, Random Urine W/Creatinine (07/16/2023 8:56 AM EDT) Creatinine, Urine 60.49 mg/dL [facility] Microalbumin Urine 14.0 mg/L [facility] Microalbum Creatinine Ratio Ur 23.1 <30 ug/mg cr [facility] Comment:Albumin/Creatinine R atio Reference Ranges: Normal: < 30 ug/mg creatinine Microalbuminuria: 30 - 300 ug/mg creatinineClinical Albuminuria: > 300 ug/mg creatinine Urine 07/16/2023 8:56 AM EDT 07/16/2023 11:32 AM EDT Tamica Duran MD LAB URINE ORDERABLES Final Result [facility] [address] [place] [phone] * Diabetes Eye Exam (10/22/2022) Eye Exam Normal Normal Historical Provider HEALTH MAINTENANCE Final Result * HIV-1/2 Antigen and Antibodies, Fourth Generation, with Reflexes (03/29/2022 9:23 AM EST) HIV Antigen/Antibody, 4th Generation NON-REAC TIVE NON-REAC TIVE [email or web address] Comment: HIV-1 antigen and HIV-1/HIV-2 antibodies were not detected. There is no laboratory evidence of HIV infection. PLEASE NOTE: This information has been disclosed to you from records whose confidentiality may be protected by state law. If your state requires such protection, then the state law prohibits you from making any further disclosure of the information without the specific written consent of the person to whom it pertains, or as otherwise permitted by law. A general authorization for the release of medical or other information is NOT sufficient for this purpose. For additional information please refer to http://education.Jobinasecond/faq/SKU789 (This link is being provided for informational/ educational purposes only.) The performance of this assay has not been clinically validated in patients less than 2 years old. Blood Venous blood specimen / Unknown 03/29/2022 9:23 AM EST 03/29/2022 9:23 AM EST Narrative [facility] - 04/03/2022 2:20 AM EST FASTING:YES FASTING: YES Tamica Duran MD LAB BLOOD ORDERABLES Final Result Performing Organization Address City/[facility]/ZIP Co de Phone Number [address], [place] [address] [facility] [address] [place] [address], (Nl2) [place] [address] * Pap Smear (12/02/2021) Pap smear NILM HPV negative Historical Provider HEALTH MAINTENANCE Final Result * HPV High Risk PCR (11/02/2021 12:00 AM EDT) Swab Cervical swab / Unknown Historical Provider LAB MICROBIOLOGY - GENERA L ORDERABLES Final Result Performing Organization Address [facility] Co de Phone Number [address], [place] [address] from Last 3 Months or Most Recently Relevant to Health Maintenance [place] [address] [address] C3 Advance Directives Documents on File Type Date Recorded 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 Vazquez [place] Otolaryngology 02/25/24 Vicki Wharton Psychiatry 04/14/24 Dr. Tamica Clinton MD [facility] Otolaryngology 04/14/24
--- OUTSIDE RECORDS SUMMARY | 2024-11-02 10:26 | XMS_ITS | Clinical Summary ---
Author Organization [facility] it Address [address] [place] [address] Care Team Providers Care Home Help Aide Name Role Phone Roger, Tamica CHASE Primary Care Provider [phone] Surgical History Surgery Date Site/Laterality Comments TONSILLECTOMY ADENOIDECTOMY, BILATERAL MYRINGOTOMY AND TUBES 1988 PROCEDURE: CO TONSILLECTOMY & ADENOIDECTOMY <AGE 13; COMMENT: CO OTHER SURGICAL HISTORY 2000 PROCEDURE: CO LIG/TRNSXJ FLP TUBE ABDL/VAG APPR UNI/BI; COMMENT: CO TUBAL LIGATION PROCEDURE: HISTORICAL TUBAL LIGATION TONSILLECTOMY PROCEDURE: HISTORICAL TONSILLECTOMY Medical History Medical History Date Comments Anemia DX:Anemia Anxiety state DX:Anxiety state Asthma DX:Asthma Diabetes mellitus type 2, co ntrolled, with complications ([facility]/HCC V24, [facility]/HCC V28) DX:Diabetes mellitus type 2, controlled, with complications ([facility]) Chronic gastric ulcer with obstruction 2012 DX:Chronic gastric ulcer with obstruction; COMMENT: [facility] Mild intermittent asthma, uncomplicated DX:Mild intermittent asthma, uncomplicated Mixed hyperlipidemia DX:Mixed hy perlipidemia HTN (hypertension) DX:HTN (hyper tension) Anxiety DX:Anxiety Family History Medical History Relation Name Comments Cervical cancer Aunt 1 Other: bone cancer Aunt 2 Diabetes Father Hypertension Father Prostate cancer Maternal Grandfather Arthritis Mother Diabetes Mother Prostate cancer Paternal Grandfather Relation Name Status Comments Aunt 1 Aunt 2 Father Maternal Grandfather Mother Paternal Grandfather Social History Tobacco Use Types Packs/Day Years Used Date Smoking Tobacco: Never Smokeless Tobacco: Never Alcohol Use Standard Drinks/Week Comments Never 0 (1 standard drink = 0.6 oz pur e alcohol) Comments Unknown Sex and Gender Information Value Date Recorded Sex Assigned at Not on file Legal Sex Female 3:31 PM EST Gender Identity Not on file Sexual Orientation Not on file Obstetrics History Plan of Treatment Health Maintenance Due Date Last Done Comments Breast Cancer Screening 1981 Diabetes: Annual GFR (Glomer ular Filtration Rate) 1981 Diabetes: Annual Foot Exam 1991 Diabetes: Annual Retina Eye Exam 1991 DTaP,Tdap,and Td Vaccines (1 - Tdap) 2000 Hepatitis B Vaccines (1 of 3 - 19+ 3-dose series) 2000 Cervical Cancer Screening: P ap Smear 2002 Cholesterol Screening (Lipid Panel) 01/09/2022 HIV Screening 01/09/2022 Hepatitis C Screening 01/09/2022 Social Influencers of Health Screening 01/09/2022 Diabetes: Annual Urine Albumin-Creatinine Ratio (uACR) 01/17/2022 Diabetes: Blood Sugar Contro l Test (HGBA1C) 01/17/2022 Depression Screening 02/11/2024 COVID-19 Vaccine ( - 2023-2 5 season) 2024 Influenza Vaccine (#1) 2024 HIB Vaccines Aged Out No longer eligi ble based on patient's age to complete this topic HPV Vaccines Aged Out No longer eligi ble based on patient's age to complete this topic Hepatitis A Vaccines Aged Out No long er eligible based on patient's age to complete this topic IPV Vaccines Aged Out No longer eligi ble based on patient's age to complete this topic MMR Vaccines Aged Out No longer eligi ble based on patient's age to complete this topic Meningococcal ACWY Vaccine Aged Out N o longer eligible based on patient's age to complete this topic Meningococcal B Vaccine Aged Out No l onger eligible based on patient's age to complete this topic Pneumococcal Vaccine: Pediat rics (0 to 5 Years) and At-Risk Patients (6 to 49 Years) Aged Out No longer eligible b ased on patient's age to complete this topic RSV Immunization Patients Un peng 20 months Aged Out No longer eligible b ased on patient's age to complete this topic Varicella Vaccines Aged Out No longer eligible based on patient's age to complete this topic Care Teams Home Help Aide Relationship Specialty Start Date End Date Tamica Duran MD [address] [place] [phone] PCP - General Internal Medicine 08/20/20
--- OUTSIDE RECORDS SUMMARY | 2024-11-02 10:26 | XMS_ITS | Encounter Summary ---
Author Organization [employer] Address [address] [facility] 7[address] [place] [address] Care Team Providers Care Child Care Provider Name Role Phone Tamica Duran MD Primary Care Provider [phone]- [phone] Dre Cedeño MD Unavailable Reason for Visit * Reason Onset Date Comments Med Refill 03/18/2023 Encounter Details Date Type Department Care Team ([facility] st Contact Info) Description 03/18/2023 Refill [facility] [address] [place], [place] [phone] Tamica Duran MD [address] [place], [place] [phone] Dandruff Social History Tobacco Use Types Packs/Day Years [...] Description 11/05/2024 11:30 AM EDT Office Visit [facility] OPTOMETRY [address] [place] [address] Sreedhar, Cass, OD [address] [place] [address] documented as of this encounter Visit Diagnoses Diagnosis Dandruff Other seborrheic dermatitis documented in this encounter Additional Health Concerns Assessment Noted Time PHQ-9 Depression Total Score: 7 12/26/19 23 2:34 PM EST documented as of this encounter Care Teams Child Care Provider Relationship Specialty Start Date End Date Tamica Duran MD [address] [place] [address] PCP - General Family Medicine 02/10/18 Dre Cedeño MD [address] [place] [address] [place] [phone] Orthopaedic Surgery 02/25/24 Dr. Vazquez [place] Otolaryngology 02/25/24 Vicki Wooderoa Psychiatry 04/14/24 Dr. Tamica Clinton MD [facility] Otolaryngology 04/14/24 documented as of this encounter
--- OUTSIDE RECORDS SUMMARY | 2024-11-02 10:26 | XMS_ITS | Clinical Summary ---
Author Organization [facility] Address [address] [place] [phone] Phone Care Team Providers Care Ballpoint Pens Assembler Name Role Phone Tamica Duran MD Primary Care Provi peng Allergies Active Allergy Reactions Criticality Noted Date Comments Oxycodone Rash Low 02/19/2023 Medications VENTOLIN HFA 90 mcg/actuation inhaler Take 2 puffs by mouth every 4 (four) hours as needed for wheezing. Active Social History Tobacco Use Types Packs/Day Years Used Date Smoking Tobacco: Never Assessed Education Answer Date Recorded Are you interested in more education? Not on kelby e 06/20/2022 Are you concerned about learning? Not on file 06/20/2022 No 06/20/2022 No 06/20/2022 Digital Access Answer Date Recorded No 07/07/2022 No 07/07/2022 No 07/07/2022 Reliable internet access at home? Not on file 07/07/2022 Device with a working camera? Not on file Intimate Partner Violence Answer Date R ecorded Are you denied basic needs s uch as food, clothing, or medical care? No 02/19/2023 In the past 12 months have y ou been in a relationship with a person who hurts, threatens, or tries to control you? No 02/19/2023 Are you denied basic needs s uch as food, clothing, or medical care? No 02/19/2023 In the past 12 months have y ou been in a relationship with a person who hurts, threatens, or tries to control you? No 02/19/2023 Comments Unknown Sex and Gender Information Value Date Recorded Sex Assigned at Not on file Legal Sex Female 6:54 PM EST Gender Identity Not on file Sexual Orientation Not on file Last Filed Vital Signs Vital Sign Reading Time Taken Comments Blood Pressure 139/89 02/19/2023 8:07 AM EST Pulse 96 02/19/2023 8:07 AM EST Temperature 36.7 C (98.1 F) 02/19/2023 8:07 AM EST Respiratory Rate 19 02/19/2023 8:07 AM EST Oxygen Saturation 100% 02/19/2023 8:07 AM EST Inhaled Oxygen Concentration - - Weight 111.1 kg (245 lb) 02/19/2023 7:02 AM EST Height 162.6 cm (5' 4 ) 02/19/2023 7:02 AM EST Body Mass Index 42.05 02/19/2023 7:02 AM EST Plan of Treatment Health Maintenance Due Date Last Done Comments Adult Td,Tdap Booster 1981 DEPRESSION SCREENING 1993 SMOKING Hx and SMOKELESS TOB ACCO SCREENING 1994 HEPATITIS C SCREENING 1999 HIV ONE-TIME SCREENING (18-6 5 YEARS) 1999 PAP SMEAR 2002 SCREENING FOR DIABETES 2016 MAMMOGRAM 2021 INFLUENZA VACCINE (#1) 2024 COVID-19 VACCINE ( - 2023-2 5 season) 2024 HEPATITIS A VACCINES Aged Out No long er eligible based on patient's age to complete this topic HIB VACCINES Aged Out No longer eligi ble based on patient's age to complete this topic MENINGOCOCCAL VACCINES (ACWY) Aged Out No longer eligible based on patient's age to complete this topic MENINGOCOCCAL VACCINES (B) Aged Out N o longer eligible based on patient's age to complete this topic PNEUMOCOCCAL VACCINES (0-49 years) Aged Out No longer eligible based on patient's age to complete this topic Medical Devices Not on file Insurance C3 ACO C3 ACO C3 ACO C3 ACO C3 ACO C3 ACO CARE COOPERATIVE C[address] [place] [address] [place] [address] C3 ACO PROGRESSIVE INSURANCE Care Teams Ballpoint Pens Assembler Relationship Specialty Start Date End Date [place], Tamica Santoro MD [address] [place] [address] PCP - General Family Medicine 02/19/23 Additional Source Comments The information contained in this document represents components of the legal health record. It is not the complete legal health record.[facility]
--- OUTSIDE RECORDS SUMMARY | 2024-11-02 10:26 | XMS_ITS | Encounter Summary ---
Author Organization [employer] Address [address] [facility] 7t [place] [address] Care Team Providers Care Lode Miner Blasting Name Role Phone Tamica Duran MD Primary Care Provider +1- [phone] Dre Cedeño MD Unavailable Reason for Visit * Reason Comments Med Refill Encounter Details Date Type Department Care Team (Late st Contact Info) Description 08/24/2024 Refill [facility] MEDICINE [address] [place], [place] [phone] Tamica Duran MD [address] [place], [place] [phone] Pain Social History Tobacco Use Types Packs/Day [...] Access Answer Date Recorded Internet Access Q1 Yes 01/01/2024 Internet Access Q2 Not on file 01/01/2024 Comments Unknown Sex and Gender Information Value [...] Description 11/05/2024 11:30 AM EDT Office Visit [facility] OPTOMETRY [address] [place] [address] Sreedhar, Cass, OD [address] [place] [address] documented as of this encounter Visit Diagnoses Diagnosis Pain Generalized pain documented in this encounter Additional Health Concerns Assessment Noted Time PHQ-9 Depression Total Score: 0 04/15/19 10:04 AM EST documented as of this encounter Care Teams Lode Miner Blasting Relationship Specialty Start Date End Date Tamica Duran MD [address] [place] [address] PCP - General Family Medicine 02/10/18 Dre Cedeño MD [address] [place] [address] [place] [address] Orthopaedic Surgery 02/25/24 Dr. Vazquez [place] Otolaryngology 02/25/24 Vicki Wooderoa Psychiatry 04/14/24 Dr. Tamica Clinton MD [facility] Otolaryngology 04/14/24 documented as of this encounter
[2024-11-02 13:17] LABS: Alanine Aminotransferase 21 U/L (0-31); Albumin Level 3.8 g/dL (3.5-5.0); Alkaline Phosphatase 56 U/L (39-117); Anion Gap 9 (12-20); Aspartate Amino Transferase 24 U/L (5-31); Blood Urea Nitrogen 8 mg/dL (9-16); Calcium 8.6 mg/dL (8.4-10.2); Carbon Dioxide 27 mmol/L (22-29); Chloride 106 mmol/L (96-108); Cholesterol 155 mg/dL (<200); Estimated Glomerular Filt Rate > 60; HDL Cholesterol 54 mg/dL (>40); Potassium 4.0 mmol/L (3.3-5.1); Sodium 138 mmol/L (135-145); Total Protein 7.3 g/dL (6.5-8.0); Triglycerides 40 mg/dL (<150)
[2024-11-02 13:44] LABS: Microalbum/Creatinine Ratio Ur 17.2 ug/mg cr (<30)
== END 2024-11-02 09:04 | disposition home or self-care (01) ==
LOC: HO.HHCL 09:03
PROVIDERS: PCP Family Medicine; Visit Provider Family Medicine
DX: E11.9 Type 2 diabetes mellitus without complications (principal); E78.5 Hyperlipidemia, unspecified
CPT/HCPCS: 36415; 80048; 80061; 80076; 82043; 82570

== ENCOUNTER 2024-11-17 10:58 | Outpatient (AMB) | payer MEDICAID, SELFPAY ==
--- NOTE | 2024-11-17 11:09 | A.OFFVIS_ITS ---
Vital Signs 11/17/24 11:10 Height 5 ft 4 in Weight 245 lb BMI 42.0 Intake Visit Reasons: New prob- Left middle trigger finger Intake Note: Cheyanne is a 44 year old right hand dominant female who presents today for a New Problem Visit for evaluation of Left Middle Trigger Finger. States her finger has started to lock about 6 months ago and has worsen. States her finger now stays stuck for longer periods. Feels better when she cracks her finger. Denies numbness, tingling or recent injury. 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 Last A1C checked was on 07/16/23 * 10.8 Allergies oxycodone (From PERCOCET) Allergy (Unknown, Verified 11/17/24 11:15) ITCHY HPI HPI New prob- Left middle trigger finger: Details: Cheyanne is a 44 year old right hand dominant woman who presents for a left middle trigger finger. She complains of painful locking & catching of her left middle finger for ~6 months now. She is a Diabetic, but says this is not well controlled. She also has asthma. 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 Review of Systems Const All systems reviewed & are unremarkable except as noted in HPI and below Physical Exam Vital Signs: BMI result Body Mass Index 42.0 Const General: cooperative, healthy appearing and no acute distress Orientation/consciousness: patient oriented x3 HEENT Head: Yes normocephalic and Yes atraumatic Eyes EOM: EOMs intact bilaterally Resp Effort & Inspection: normal respiratory effort and able to speak in complete sentences Cardio Jugular venous distension: no JVD Skin General skin exam: turgor normal Rashes: no rashes Neuro General: patient oriented x3 Extrem Other: Evaluation of Left Upper Extremity: The patient is alert, oriented, and in no acute distress Neuro: Median, Ulnar, Radial nerves motor and sensory intact and sensation is normal to the tips of all digits Vascular: Cap refill brisk ROM: She can make a fist and extend all her digits Visible & palpable locking & catching of the middle finger Tender over the middle finger A1 marcelo Skin: No lacerations or abrasions. General: No Ecchymosis. No Erythema or evidence of infection. Psych Appearance: grossly normal Affect: normal affect Attitude: cooperative Assessment & Plan Assessment & Plan (1) Trigger middle finger of left hand: Code(s): M65.332 - Trigger finger, left middle finger Category: Medical (2) Diabetes: Code(s): E11.9 - Type 2 diabetes mellitus without complications Category: Medical (3) Asthma: Code(s): J45.909 - Unspecified asthma, uncomplicated Category: Medical Plan Assessment & Plan: 1. Left middle finger trigger finger I educated her about this condition I discussed operative and non-operative treatment options I recommend an injection, but her Diabetes is not well-controlled and she is not eligible for an injection or surgery at this time. Last HgA1c was 10.8% on 07/16/23. She says her Asthma medication is affecting her blood sugars. I discussed her Diabetes with her and the importance of managing her sugar levels. She says she will speak with her [employer] Operator to better manage this She can follow up to discuss treatment options when her HgA1c is lower. It should be <9.4% for an injection, and <8.1% in order to proceed with surgery, and they expressed understanding She can follow up prn Scribed for Dinorah Martel MD by Adams Espinal, medical billing service, on 11/17/24 at 11:25 AM, EST. Coding Level of Care Code New Pt Level 4 (82196) Diagnoses Trigger middle finger of left hand M65.332 Diabetes E11.9 Asthma J45.909
[2024-11-17 11:10] VITALS: BMI 42.0
== END 2024-11-17 11:35 | disposition home or self-care (01) ==
LOC: HO.HOS 10:58
PROVIDERS: PCP Family Medicine; Visit Provider Orthopaedic Surgery
DX: M65.332 Trigger finger, left middle finger (principal); E11.9 Type 2 diabetes mellitus without complications; J45.909 Unspecified asthma, uncomplicated
CPT/HCPCS: 99204

== ENCOUNTER → 2024-11-17 10:58 | Outpatient (BNVA) | payer MEDICAID, SELFPAY | PROVIDERS: PCP Family Medicine; Visit Provider Orthopaedic Surgery | DX: M65.332 Trigger finger, left middle finger (principal); E11.9 Type 2 diabetes mellitus without complications; J45.909 Unspecified asthma, uncomplicated | CPT/HCPCS: 99202 ==